=== PATIENT | female | born 1995 | race Caucasian/White ===

== ENCOUNTER 2016-11-03 04:59 | Emergency (ER) | payer OTHER ==
[2016-11-03 05:53] LABS: Appearance,Urine Cloudy (Clear); Bacteria,Urine Rare /hpf; Bilirubin,Urine Negative (Negative); Glucose,Urine (UA) Negative (Negative); Ketones,Urine Negative (Negative); Leukocyte Esterase,Urine Moderate (Negative); Mucus,Urine Occasional /hpf; Nitrite,Urine Negative (Negative); Particle Count 6732; Protein,Urine Trace (Negative); RBC,Urine 2 /hpf (0-5); Specific Gravity,Urine 1.026 (1.001-1.035); Squamous Epithelial Cell,Urine 12 /hpf (0-4); UA Billing (MACRO vs. MICRO) MICRO; Urobilinogen,Urine <2.0 mg/dL (<2.0); WBC,Urine 17 /hpf (0-5)
[2016-11-03] MEDS ORDERED: ONDANSETRON ODT 8 MG TAB.RAPDIS PO STA (06:30)
--- NOTE | 2016-11-03 06:32 | ED ---
General Adult HPI - General Chief complaint: Nausea/Vomiting/Diarrhea Stated complaint: NVD Time Seen by Provider: 11/03/16 06:19 Source: patient, RN notes reviewed, old records reviewed Mode of arrival: ambulatory Limitations: no limitations - History of Present Illness Initial comments: This is a 22-year-old female here for evaluation nausea vomiting diarrhea, abdominal pain. Mild dysuria as well. Patient has no modifying factors or symptoms at home, no blood in her vomit, no blood in her diarrhea and no fevers. No travel history no sick contacts with similar complaints, no recent changes to diet. patient has had these symptoms along with the burning with urination for about a day and a half - Related Data Home Medications Medication Instructions Recorded Confirmed traMADol HCL [Ultram] 11/03/16 Previous Rx's Medication Instructions Recorded Naproxen [Naprosyn] 500 mg PO Q12HR #60 tab 11/03/16 Nitrofurantoin Monohyd/M-Cryst 100 mg PO Q12HR #10 cap 11/03/16 [Macrobid] Ondansetron Odt [Zofran Odt] 4 mg PO Q8HR PRN #30 tab 11/03/16 Allergies Allergy/AdvReac Type Severity Reaction Status Date / Time Penicillins Allergy Itching Verified 11/03/16 05:06 Review of Systems ROS Statement: Those systems with pertinent positive or pertinent negative responses have been documented in the HPI. ROS Other: All systems not noted in ROS Statement are negative. Past Medical History Past Medical History: Asthma, GERD/Reflux History of Any Multi-Drug Resistant Organisms: None Reported Past Surgical History: No Surgical Hx Reported Past Psychological History: Depression Smoking Status: Current every day smoker Past Alcohol Use History: None Reported Past Drug Use History: None Reported General Exam Limitations: no limitations General appearance: alert, in no apparent distress Head exam: Present: atraumatic, normocephalic, normal inspection Eye exam: Present: normal appearance, PERRL, EOMI. Absent: scleral icterus, conjunctival injection, periorbital swelling ENT exam: Present: normal exam, mucous membranes moist Neck exam: Present: normal inspection. Absent: tenderness, meningismus, lymphadenopathy Respiratory exam: Present: normal lung sounds bilaterally. Absent: respiratory distress, wheezes, rales, rhonchi, stridor Cardiovascular Exam: Present: regular rate, normal rhythm, normal heart sounds. Absent: systolic murmur, diastolic murmur, rubs, gallop, clicks GI/Abdominal exam: Present: soft, normal bowel sounds. Absent: distended, tenderness, guarding, rebound, rigid Extremities exam: Present: normal inspection, full ROM, normal capillary refill. Absent: tenderness, pedal edema, joint swelling, calf tenderness Back exam: Present: normal inspection Neurological exam: Present: alert, oriented X3, CN II-XII intact Psychiatric exam: Present: normal affect, normal mood Skin exam: Present: warm, dry, intact, normal color. Absent: rash Course Vital Signs 11/03/16 11/03/16 05:04 06:47 Temperature 97.9 F 100.3 F H Pulse Rate 130 H 110 H Respiratory 20 16 Rate Blood Pressure 128/75 119/58 O2 Sat by Pulse 98 96 Oximetry Medical Decision Making - Medical Decision Making 21 female here with nausea vomiting diarrhea, nausea is resolved with antiemetics, positive urine for urinary tract infection, patient will be treated appropriately. - Lab Data Lab Results 11/03/16 11/03/16 Range/Units 05:25 05:25 Urine Color Yellow Urine Appearance Cloudy H (Clear) Urine pH 6.0 (5.0-8.0) Ur Specific [place] 1.026 (1.001-1.035) Urine Protein Trace H (Negative) Urine Glucose (UA) Negative (Negative) Urine Ketones Negative (Negative) Urine Blood Negative (Negative) Urine Nitrate Negative (Negative) Urine Bilirubin Negative (Negative) Urine Urobilinogen <2.0 (<2.0) mg/dL Ur Leukocyte Esterase Moderate H (Negative) Urine RBC 2 (0-5) /hpf Urine WBC 17 H (0-5) /hpf Ur Squamous Epith Cells 12 H (0-4) /hpf Urine Bacteria Rare H (None) /hpf Hyaline Casts 2 (0-2) /lpf Urine Mucus Occasional H (None) /hpf Urine HCG, Qual Not Detected (Not Detectd) Disposition Clinical Impression: Dehydration, Nausea & vomiting, UTI (urinary tract infection) Disposition: HOME SELF-CARE Condition: Good Instructions: Acute Nausea and Vomiting (ED), Urinary Tract Infection in Women (ED) Prescriptions: Naproxen [Naprosyn] 500 mg PO Q12HR #60 tab Nitrofurantoin Monohyd/M-Cryst [Macrobid] 100 mg PO Q12HR #10 cap Ondansetron Odt [Zofran Odt] 4 mg PO Q8HR PRN #30 tab PRN Reason: Nausea Referrals: Elisa Curtis MD [Primary Care Provider] - 1-2 days
[2016-11-03] MEDS ORDERED: ACETAMINOPHEN TAB 325 MG TAB PO STA (06:45)
[2016-11-03 06:48] VITALS: BP 119/58; PULSE 110; RESP 16; TEMP 100.3
== END 2016-11-03 06:49 | disposition home or self-care (01) ==
LOC: EC 04:59
DX: N39.0 Urinary tract infection, site not specified (principal); E86.0 Dehydration; F17.200 Nicotine dependence, unspecified, uncomplicated; Z88.0 Allergy status to penicillin; Z79.891 Long term (current) use of opiate analgesic
CPT/HCPCS: 81001; 81025; 99284

== ENCOUNTER 2017-09-07 12:24 | Emergency (ER) | payer OTHER ==
[2017-09-07 12:43] VITALS: BP 133/80; PULSE 87; RESP 18; TEMP 97.9
--- NOTE | 2017-09-07 13:06 | ED ---
URI HPI - General Chief Complaint: Upper Respiratory Infection Stated Complaint: Poss Sinus Infection Time Seen by Provider: 09/07/17 12:45 Source: patient, RN/MD, RN notes reviewed, old records reviewed Mode of arrival: ambulatory Limitations: no limitations - History of Present Illness Initial Comments: Patient is a 21-year-old female presents emergency Department chief complaint of sinus congestion, sore throat, and eye swelling and pressure for the past 4 days. Patient reports that she's been taking Mucinex with some minor relief. She denies any known fever or chills. She reports that she is up-to-date on all for vaccinations, denies any specific productive cough, chest pain or shortness of breath. Patient has had no nausea or vomiting.Patient denies any recent fever, chills, shortness of breath, chest pain, back pain, abdominal pain , nausea vomiting, numbness or tingling, dysuria or hematuria, constipation or diarrhea, headaches or visual changes, or any other current symptoms - Related Data Home Medications Medication Instructions Recorded Confirmed traMADol HCL [Ultram] 11/03/16 Previous Rx's Medication Instructions Recorded Naproxen [Naprosyn] 500 mg PO Q12HR #60 tab 11/03/16 Nitrofurantoin Monohyd/M-Cryst 100 mg PO Q12HR #10 cap 11/03/16 [Macrobid] Ondansetron Odt [Zofran Odt] 4 mg PO Q8HR PRN #30 tab 11/03/16 Azithromycin [Zithromax Z-pack] 250 mg PO DIRECTED #6 tab 09/07/17 Fluticasone Nasal [place] [Flonase 1 spray EA NOSTRIL DAILY #1 bottle 09/07/17 Nasal [place]] Allergies Allergy/AdvReac Type Severity Reaction Status Date / Time Penicillins Allergy Itching Verified 09/07/17 12:43 Review of Systems ROS Statement: Those systems with pertinent positive or pertinent negative responses have been documented in the HPI. ROS Other: All systems not noted in ROS Statement are negative. Past Medical History Past Medical History: Asthma, GERD/Reflux History of Any Multi-Drug Resistant Organisms: None Reported Past Surgical History: No Surgical Hx Reported Past Psychological History: Depression Smoking Status: Current every day smoker Past Alcohol Use History: Occasional Past Drug Use History: None Reported General Exam - General Exam Comments Initial Comments: 21-year-old female. No acute distress. Limitations: no limitations General appearance: alert, in no apparent distress Head exam: Present: atraumatic Eye exam: Present: normal appearance, PERRL, EOMI. Absent: scleral icterus, conjunctival injection, periorbital swelling ENT exam: Present: normal exam, mucous membranes moist, other (Patient is tender over that maxillary sinuses.). Absent: normal oropharynx (Patient has enlarged tonsils,), TM's normal bilaterally (Patient has fluid behind both TMs.) Neck exam: Present: normal inspection. Absent: tenderness, meningismus, lymphadenopathy Respiratory exam: Present: normal lung sounds bilaterally. Absent: respiratory distress, wheezes, rales, rhonchi, stridor Cardiovascular Exam: Present: regular rate, normal rhythm, normal heart sounds. Absent: systolic murmur, diastolic murmur, rubs, gallop, clicks GI/Abdominal exam: Present: soft, normal bowel sounds. Absent: distended, tenderness, guarding, rebound, rigid Extremities exam: Present: normal inspection, full ROM, normal capillary refill. Absent: tenderness, pedal edema, joint swelling, calf tenderness Back exam: Present: normal inspection Neurological exam: Present: alert, oriented X3, CN II-XII intact Psychiatric exam: Present: normal affect, normal mood Skin exam: Present: warm, dry, intact, normal color. Absent: rash Course Vital Signs 09/07/17 12:39 Temperature 97.9 F Pulse Rate 87 Respiratory 18 Rate Blood Pressure 133/80 O2 Sat by Pulse 96 Oximetry Medical Decision Making - Medical Decision Making 21-year-old female presents emergency Department chief complaint of sinus congestion for approximately 4-5 days. Patient does have some swollen tonsils, no significant erythema noted. Patient is ALLERGIC to penicillins. Patient does have some erythematous nasal turbinates sales well. Discussed the importance of taking Mucinex, this time our the patient for a intranasal corticosteroid, as well as azithromycin for sinusitis.. Discussed that she needs to follow-up with her primary care provider. Patient agrees to treatment plan will comply. Return parameters were discussed. Disposition Clinical Impression: Sinusitis Disposition: HOME SELF-CARE Condition: Good Instructions: Upper Respiratory Infection (ED) Additional Instructions: and advised to follow-up with primary care provider. Continue to take Mucinex and other nasal decongestants. Return to emergency department if any alarming signs or symptoms occur. Prescriptions: Azithromycin [Zithromax Z-pack] 250 mg PO DIRECTED #6 tab Fluticasone Nasal [place] [Flonase Nasal [place]] 1 spray EA NOSTRIL DAILY #1 bottle Referrals: Elisa Curtis MD [Primary Care Provider] - 1-2 days Time of Disposition: 13:05
== END 2017-09-07 13:17 | disposition home or self-care (01) ==
LOC: EC 12:24
DX: J32.0 Chronic maxillary sinusitis (principal); F17.200 Nicotine dependence, unspecified, uncomplicated; Z88.0 Allergy status to penicillin; Z79.891 Long term (current) use of opiate analgesic
CPT/HCPCS: 99283

== ENCOUNTER 2017-12-13 11:25 | Emergency (ER) | payer OTHER ==
[2017-12-13] MEDS ORDERED: SODIUM CHLORIDE 0.9% 1,000 ML IV STA (11:40)
[2017-12-13] MEDS ORDERED: ONDANSETRON 4 MG/2 ML VIAL IVP STA (11:40)
--- NOTE | 2017-12-13 11:43 | ED ---
General Adult HPI - General Chief complaint: Nausea/Vomiting/Diarrhea Stated complaint: Vomiting/throat swollen Time Seen by Provider: 12/13/17 11:30 Source: patient, RN notes reviewed Mode of arrival: ambulatory Limitations: no limitations - History of Present Illness Initial comments: Patient 22-year-old female who presents emergency room today with a chief complaint of symptoms of nausea vomiting times one day. Patient does not that she woke up yesterday morning feeling nauseated. States she didn't have several bouts of vomiting with some dry heaving. She does admit that she's tried to drink is having a difficult time keeping down fluids. Patient denies any abdominal pain. She has noted some swollen lymph nodes. Admits to a history of strep throat. Denies temperature symptoms. Patient denies any recent fever, chills, shortness of breath, chest pain, back pain, numbness or tingling, dysuria or hematuria, constipation or diarrhea, headaches or visual changes, or any other complaints. - Related Data Previous Rx's Medication Instructions Recorded Azithromycin [Zithromax Z-pack] 0 mg PO DIRECTED #6 tab 12/13/17 Ondansetron Odt [Zofran ODT] 4 mg PO Q8HR PRN #20 tab 12/13/17 Allergies Allergy/AdvReac Type Severity Reaction Status Date / Time Penicillins Allergy Itching Verified 12/13/17 11:47 Review of Systems ROS Statement: Those systems with pertinent positive or pertinent negative responses have been documented in the HPI. ROS Other: All systems not noted in ROS Statement are negative. Past Medical History Past Medical History: Asthma, GERD/Reflux History of Any Multi-Drug Resistant Organisms: None Reported Past Surgical History: No Surgical Hx Reported Past Psychological History: Depression Smoking Status: Current every day smoker Past Alcohol Use History: Occasional Past Drug Use History: None Reported General Exam - General Exam Comments Initial Comments: General: The patient is awake and alert, in no distress, and does not appear acutely ill. Eye: Pupils are equal, round and reactive to light, extra-ocular movements are intact. No nystagmus. There is normal conjunctiva bilaterally. No signs of icterus. Ears, nose, mouth and throat: There are moist mucous membranes and no oral lesions. Neck: The neck is supple, there is no tenderness or JVD. Cardiovascular: There is a regular rate and rhythm. No murmur, rub or gallop is appreciated. Respiratory: Lungs are clear to auscultation, respirations are non-labored, breath sounds are equal. No wheezes, stridor, rales, or rhonchi. Gastrointestinal: Soft, non-distended, non-tender abdomen without masses or organomegaly noted. There is no rebound or guarding present. No CVA tenderness. Musculoskeletal: Normal ROM, no tenderness. Strength 5/5. Sensation intact. Pulses equal bilaterally 2+. Neurological: A&O x 3. CN II-XII intact, There are no obvious motor or sensory deficits. Coordination appears grossly intact. Speech is normal. Skin: Skin is warm and dry and no rashes or lesions are noted. Psychiatric: Cooperative, appropriate mood & affect, normal judgment. Limitations: no limitations Course Vital Signs 12/13/17 12/13/17 11:27 13:21 Temperature 98.5 F 100.6 F H Pulse Rate 114 H 103 H Respiratory 20 16 Rate Blood Pressure 114/70 124/64 O2 Sat by Pulse 99 98 Oximetry Medical Decision Making - Medical Decision Making Patient reexamined at this time shows no signs of distress she is feeling better here in emergency room. Nausea and vomiting much improved. Patient's strep test is positive. Heterophile negative. Patient does have low-grade fever here in emergency room. Given ibuprofen. Feeling well at this time will be started on azithromycin due to ALLERGY to penicillins or strep throat. Also given nausea medication go home with. Advised follow-up the family doctor return if symptoms increase or worsen or for new concerns. - Lab Data Result diagrams: 12/13/17 12:20 12/13/17 12:20 Lab Results 12/13/17 12/13/17 12/13/17 Range/Units 12:20 12:20 12:20 WBC 12.7 H (3.8-10.6) k/uL RBC 4.69 (3.80-5.40) m/uL Hgb 13.7 (11.4-16.0) gm/dL Hct 40.5 (34.0-46.0) % MCV 86.5 (80.0-100.0) fL MCH 29.1 (25.0-35.0) pg MCHC 33.7 (31.0-37.0) g/dL RDW 12.3 (11.5-15.5) % Plt Count 210 (150-450) k/uL Neutrophils % 82 % Lymphocytes % 10 % Monocytes % 7 % Eosinophils % 1 % Basophils % 0 % Neutrophils # 10.5 H (1.3-7.7) k/uL Lymphocytes # 1.3 (1.0-4.8) k/uL Monocytes # 0.9 (0-1.0) k/uL Eosinophils # 0.1 (0-0.7) k/uL Basophils # 0.0 (0-0.2) k/uL Sodium 137 (137-145) mmol/L Potassium 3.8 (3.5-5.1) mmol/L Chloride 104 (98-107) mmol/L Carbon Dioxide 22 (22-30) mmol/L Anion Gap 11 mmol/L BUN 12 (7-17) mg/dL Creatinine 0.56 (0.52-1.04) mg/dL Est GFR (CKD-EPI)AfAm >90 (>60 ml/min/1.73 sqM) Est GFR (CKD-EPI)NonAf >90 (>60 ml/min/1.73 sqM) Glucose 93 (74-99) mg/dL Calcium 9.1 (8.4-10.2) mg/dL Total Bilirubin 0.6 (0.2-1.3) mg/dL AST 21 (14-36) U/L ALT 28 (9-52) U/L Alkaline Phosphatase 90 (38-126) U/L Total Protein 6.8 (6.3-8.2) g/dL Albumin 3.7 (3.5-5.0) g/dL Urine Color Yellow Urine Appearance Cloudy H (Clear) Urine pH 6.0 (5.0-8.0) Ur Specific [place] 1.027 (1.001-1.035) Urine Protein 1+ H (Negative) Urine Glucose (UA) Negative (Negative) Urine Ketones 1+ H (Negative) Urine Blood Negative (Negative) Urine Nitrite Negative (Negative) Urine Bilirubin Negative (Negative) Urine Urobilinogen <2.0 (<2.0) mg/dL Ur Leukocyte Esterase Small H (Negative) Urine WBC 9 H (0-5) /hpf Ur Squamous Epith Cells 16 H (0-4) /hpf Urine Mucus Moderate H (None) /hpf Urine HCG, Qual (Not Detectd) Heterophile Antibody (Negative) Group A Strep Rapid (Negative) 12/13/17 12/13/17 12/13/17 Range/Units 12:20 12:20 12:20 WBC (3.8-10.6) k/uL RBC (3.80-5.40) m/uL Hgb (11.4-16.0) gm/dL Hct (34.0-46.0) % MCV (80.0-100.0) fL MCH (25.0-35.0) pg MCHC (31.0-37.0) g/dL RDW (11.5-15.5) % Plt Count (150-450) k/uL Neutrophils % % Lymphocytes % % Monocytes % % Eosinophils % % Basophils % % Neutrophils # (1.3-7.7) k/uL Lymphocytes # (1.0-4.8) k/uL Monocytes # (0-1.0) k/uL Eosinophils # (0-0.7) k/uL Basophils # (0-0.2) k/uL Sodium (137-145) mmol/L Potassium (3.5-5.1) mmol/L Chloride (98-107) mmol/L Carbon Dioxide (22-30) mmol/L Anion Gap mmol/L BUN (7-17) mg/dL Creatinine (0.52-1.04) mg/dL Est GFR (CKD-EPI)AfAm (>60 ml/min/1.73 sqM) Est GFR (CKD-EPI)NonAf (>60 ml/min/1.73 sqM) Glucose (74-99) mg/dL Calcium (8.4-10.2) mg/dL Total Bilirubin (0.2-1.3) mg/dL AST (14-36) U/L ALT (9-52) U/L Alkaline Phosphatase (38-126) U/L Total Protein (6.3-8.2) g/dL Albumin (3.5-5.0) g/dL Urine Color Urine Appearance (Clear) Urine pH (5.0-8.0) Ur Specific [place] (1.001-1.035) Urine Protein (Negative) Urine Glucose (UA) (Negative) Urine Ketones (Negative) Urine Blood (Negative) Urine Nitrite (Negative) Urine Bilirubin (Negative) Urine Urobilinogen (<2.0) mg/dL Ur Leukocyte Esterase (Negative) Urine WBC (0-5) /hpf Ur Squamous Epith Cells (0-4) /hpf Urine Mucus (None) /hpf Urine HCG, Qual Not Detected (Not Detectd) Heterophile Antibody Negative (Negative) Group A Strep Rapid Positive A (Negative) Disposition Clinical Impression: Strep throat, Nausea & vomiting Disposition: HOME SELF-CARE Condition: Good Instructions: Strep Throat (ED) Additional Instructions: Please use medication as discussed. Please follow-up with family doctor in the next 2 days of symptoms have not improved. Please return to emergency room if the symptoms increase or worsen or for any other concerns. Prescriptions: Azithromycin [Zithromax Z-pack] 0 mg PO DIRECTED #6 tab Ondansetron Odt [Zofran ODT] 4 mg PO Q8HR PRN #20 tab PRN Reason: Nausea Referrals: Elisa Curtis MD [Primary Care Provider] - 1-2 days Time of Disposition: 14:00
[2017-12-13 12:55] LABS: ALT 28 U/L (9-52); AST 21 U/L (14-36); Albumin 3.7 g/dL (3.5-5.0); Alkaline Phosphatase 90 U/L (38-126); Anion Gap 11 mmol/L; Blood Urea Nitrogen 12 mg/dL (7-17); Calcium 9.1 mg/dL (8.4-10.2); Carbon Dioxide 22 mmol/L (22-30); Chloride 104 mmol/L (98-107); Glucose 93 mg/dL (74-99); Potassium 3.8 mmol/L (3.5-5.1); Sodium 137 mmol/L (137-145); Total Bilirubin 0.6 mg/dL (0.2-1.3); Total Protein 6.8 g/dL (6.3-8.2)
[2017-12-13 12:56] LABS: Appearance,Urine Cloudy (Clear); Bilirubin,Urine Negative (Negative); Blood,Urine Negative (Negative); Color,Urine Yellow; Glucose,Urine (UA) Negative (Negative); Ketones,Urine 1+ (Negative); Leukocyte Esterase,Urine Small (Negative); Mucus,Urine Moderate /hpf; Protein,Urine 1+ (Negative); Specific Gravity,Urine 1.027 (1.001-1.035); Squamous Epithelial Cell,Urine 16 /hpf (0-4); Urobilinogen,Urine <2.0 mg/dL (<2.0); WBC,Urine 9 /hpf (0-5)
[2017-12-13 12:57] LABS: Basophils % (A) 0 %; Eosinophils # (A) 0.1 k/uL (0-0.7); Eosinophils % (A) 1 %; HCT 40.5 % (34.0-46.0); HGB 13.7 gm/dL (11.4-16.0); Lymphocytes # (A) 1.3 k/uL (1.0-4.8); Lymphocytes % (A) 10 %; MCH 29.1 pg (25.0-35.0); MCHC 33.7 g/dL (31.0-37.0); MCV 86.5 fL (80.0-100.0); Mean Platelet Volume 8.8; Monocytes # (A) 0.9 k/uL (0-1.0); Monocytes % (A) 7 %; Neutrophils # (A) 10.5 k/uL (1.3-7.7); Neutrophils % (A) 82 %; Platelet Count 210 k/uL (150-450); RBC 4.69 m/uL (3.80-5.40); RDW 12.3 % (11.5-15.5); WBC 12.7 k/uL (3.8-10.6)
[2017-12-13 13:24] VITALS: BP 124/64; PULSE 103; RESP 16; TEMP 100.6
[2017-12-13] MEDS ORDERED: IBUPROFEN 600 MG STARTER PACK 4 TAB BTL PO STA (13:56)
== END 2017-12-13 14:22 | disposition home or self-care (01) ==
LOC: EC 11:25
DX: J02.0 Streptococcal pharyngitis (principal); F17.200 Nicotine dependence, unspecified, uncomplicated; Z88.0 Allergy status to penicillin
CPT/HCPCS: 36415; 80053; 85025; 86308; 81001; 81025; 87086; 87430; 99284; 96374; 96361 ×2; J2405

== ENCOUNTER 2018-10-21 22:50 | Emergency (ER) | payer OTHER ==
[2018-10-21 23:31] VITALS: TEMP 98.7
--- NOTE | 2018-10-22 00:03 | XR ---
EXAMINATION TYPE: XR ankle complete LT DATE OF EXAM: 10/21/2018 COMPARISON: NONE HISTORY: Ankle pain TECHNIQUE: 3 views FINDINGS: Ankle mortise is anatomic. I see no fracture. There is soft tissue swelling over the latera l malleolus. IMPRESSION: Soft tissue swelling. No fracture seen.
--- NOTE | 2018-10-22 00:04 | XR ---
EXAMINATION TYPE: XR foot complete LT DATE OF EXAM: 10/21/2018 COMPARISON: NONE HISTORY: Foot pain TECHNIQUE: 3 views FINDINGS: Metatarsals appear intact. I see no fracture nor dislocation. There are no erosions. Joint spaces are normal. IMPRESSION: Negative left foot exam.
[2018-10-22] MEDS ORDERED: IBUPROFEN 600 MG STARTER PACK 4 TAB BTL PO STA (01:08)
--- NOTE | 2018-10-22 01:10 | ED ---
Lower Extremity Injury HPI - General Chief Complaint: Extremity Injury, Lower Stated Complaint: Foot injury Time Seen by Provider: 10/22/18 00:56 Source: patient Mode of arrival: ambulatory Limitations: no limitations - History of Present Illness Initial Comments: 23-year-old female patient presents to the emergency department today for evaluation of left ankle pain and swelling. Patient states that an hour prior to arrival she was walking outside when she stepped off a curb and rolled her ankle. Patient states that she had onset of pain and swelling shortly after. Denies taking anything for pain or discomfort. Denies any numbness or tingling to the foot. States she is able to ablate however it is quite painful for her. She denies falling with the injury. At that she has had a fracture to this ankle in the past. She denies any other injuries. Patient denies any headache, neck pain, back pain, chest pain, shortness of breath, dizziness, weakness, abdominal pain, nausea, vomiting, or difficulties with bowel movements or urination. - Related Data Previous Rx's Medication Instructions Recorded Azithromycin [Zithromax Z-pack] 0 mg PO DIRECTED #6 tab 12/13/17 Ondansetron Odt [Zofran ODT] 4 mg PO Q8HR PRN #20 tab 12/13/17 Ibuprofen [Motrin] 600 mg PO Q8HR PRN #30 tab 10/22/18 Allergies Allergy/AdvReac Type Severity Reaction Status Date / Time Penicillins Allergy Itching Verified 10/21/18 23:31 Review of Systems ROS Statement: Those systems with pertinent positive or pertinent negative responses have been documented in the HPI. ROS Other: All systems not noted in ROS Statement are negative. Past Medical History Past Medical History: Asthma, GERD/Reflux History of Any Multi-Drug Resistant Organisms: None Reported Past Surgical History: No Surgical Hx Reported Past Psychological History: Depression Smoking Status: Former smoker Past Alcohol Use History: Occasional Past Drug Use History: None Reported General Exam Limitations: no limitations General appearance: alert, in no apparent distress, other (This is a well- developed, well-nourished adult female patient in no acute distress. Vital signs upon presentation are temperature 98.7F, pulse 116, respirations 17, blood pressure 126/88, pulse ox 98% on room air.) Eye exam: Present: normal appearance, PERRL, EOMI. Absent: scleral icterus, conjunctival injection, periorbital swelling ENT exam: Present: normal exam, normal oropharynx, mucous membranes moist Respiratory exam: Present: normal lung sounds bilaterally. Absent: respiratory distress, wheezes, rales, rhonchi, stridor Cardiovascular Exam: Present: regular rate, normal rhythm, normal heart sounds. Absent: systolic murmur, diastolic murmur, rubs, gallop, clicks Extremities exam: Present: full ROM, tenderness (Is over the left lateral malleolus), normal capillary refill, other (Patient has significant soft tissue swelling surrounding the left lateral malleolus. Skin is pink, warm, dry. Cap refills less than 3 seconds. Pedal and posttibial pulses are 2+ and equal bilaterally.). Absent: normal inspection, pedal edema, joint swelling, calf tenderness Neurological exam: Present: alert, oriented X3, CN II-XII intact Psychiatric exam: Present: normal affect, normal mood Skin exam: Present: warm, dry, intact, normal color. Absent: rash Course Vital Signs 10/21/18 10/22/18 23:28 01:22 Temperature 98.7 F Pulse Rate 116 H 110 H Respiratory 17 16 Rate Blood Pressure 126/88 130/82 O2 Sat by Pulse 98 95 Oximetry Medical Decision Making - Medical Decision Making 23-year-old female patient presents the emergency department today for evaluation of left ankle injury. Physical examination did reveal swelling surrounding the left lateral malleolus. Neurovascular status is intact. X- rays of the left foot and ankle were obtained and were negative for any evidence of fracture. Patient symptoms are consistent with sprain. She was put in a ankle stirrup splint. She is instructed regarding rest, ice, elevation. She'll be given prescription for ibuprofen for pain control. She is instructed to follow-up with her primary care physician for recheck in 1-2 days. She is instructed to have repeat x-rays performed in 7-10 days if pain symptoms persist. Return parameters were discussed in detail. She verbalizes understanding and agrees with this plan. - Radiology Data Radiology results: report reviewed, image reviewed 3 views of the left ankle are obtained. Report is reviewed in its entirety. Impression by Dr. Faust shows soft tissue swelling with no fracture. 3 views of the left foot are obtained. Report was reviewed in its entirety. Impression by Dr. Faust shows negative left foot exam. Disposition Clinical Impression: Left ankle sprain Disposition: HOME SELF-CARE Condition: Good Instructions: Ankle Sprain (ED) Additional Instructions: Rest, ice, elevate the left ankle. Use ankle splint for comfort and support. Follow-up with your primary care physician for recheck and repeat x-rays pain symptoms persist beyond 7-10 days. Return to the emergency department immediately for any new, worsening, or concerning symptoms Prescriptions: Ibuprofen [Motrin] 600 mg PO Q8HR PRN #30 tab PRN Reason: Pain Is patient prescribed a controlled substance at d/c from ED?: No Referrals: Elisa Curtis MD [Primary Care Provider] - 1-2 days Time of Disposition: 01:09
[2018-10-22 01:23] VITALS: BP 130/82; PULSE 110; RESP 16
== END 2018-10-22 01:22 | disposition home or self-care (01) ==
LOC: SUPCPDRO 22:50 → EC 22:50
DX: S93.402A Sprain of unspecified ligament of left ankle, initial encounter (principal); Z87.81 Personal history of (healed) traumatic fracture; Z87.891 Personal history of nicotine dependence; Z88.0 Allergy status to penicillin; X50.1XXA Overexertion from prolonged static or awkward postures, initial encounter; Y92.480 Sidewalk as the place of occurrence of the external cause; Y93.01 Activity, walking, marching and hiking
CPT/HCPCS: 73610; 73630; 99283; 29515; L4350

== ENCOUNTER 2019-11-12 20:12 | Emergency (ER) | payer OTHER ==
[2019-11-12 20:21] VITALS: RESP 18; TEMP 98.6
[2019-11-12] MEDS ORDERED: diphenhydrAMINE 50 MG/ML 1 ML VIAL IVP STA (20:36)
[2019-11-12] MEDS ORDERED: methylPREDNISolone SOD SUCCI 125 MG/2 ML VIAL IV STA (20:36)
[2019-11-12] MEDS ORDERED: SODIUM CHLORIDE 0.9% 500 ML 500 ML IV STA (20:36)
[2019-11-12] MEDS ORDERED: FAMOTIDINE 20 MG/2 ML VIAL IV STA (20:36)
--- NOTE | 2019-11-12 21:29 | ED ---
General Adult HPI - General Chief complaint: Allergic Reaction Stated complaint: Face Swelling Time Seen by Provider: 11/12/19 20:24 Source: patient, RN notes reviewed, old records reviewed Mode of arrival: ambulatory Limitations: no limitations - History of Present Illness Initial comments: 24-year-old female patient with ED for evaluation of possible ALLERGIC reaction. Patient reports that beginning last night she began to experience some facial swelling around her eyes. Patient reports that progressive throughout the day has been worse reports that she is having some facial swelling. Denies any shortness breath or difficulty breathing. Denies any rash. Denies any new contacts. Denies any other complaints. Denies any chance of being . Systemic: Pt denies fatigue, fever/chills, rash. Pt denies weakness, night sweats, weight loss. Neuro: Pt denies headache, visual disturbances, syncope or pre-syncope. HEENT: Pt denies ocular discharge or irritation, otalgia, rhinorrhea, pharyngitis or notable lymphadenopathy. Cardiopulmonary: Pt denies chest pain, SOB, heart palpitations, dyspnea on exertion. Abdominal/GI: Pt denies abdominal pain, n/v/d. : Pt denies dysuria, burning w/ urination, frequency/urgency. Denies new onset urinary or bowel incontinence. MSK: Pt denies myalgia, loss of strength or function in extremities. Neuro: Pt denies new onset weakness, paresthesias. - Related Data Previous Rx's Medication Instructions Recorded Azithromycin [Zithromax Z-pack] 0 mg PO DIRECTED #6 tab 12/13/17 Ondansetron Odt [Zofran ODT] 4 mg PO Q8HR PRN #20 tab 12/13/17 Ibuprofen [Motrin] 600 mg PO Q8HR PRN #30 tab 10/22/18 EPINEPHrine (Auto Inject) [Epipen] 0.3 mg IM ONCE PRN #2 pen 11/12/19 Famotidine [Pepcid] 20 mg PO BID 4 Days #8 tablet 11/12/19 predniSONE 50 mg PO DAILY 4 Days #4 tab 11/12/19 Allergies Allergy/AdvReac Type Severity Reaction Status Date / Time Penicillins Allergy Itching Verified 10/21/18 23:31 latex Allergy Rash/Hives Uncoded 11/12/19 20:22 Review of Systems ROS Statement: Those systems with pertinent positive or pertinent negative responses have been documented in the HPI. ROS Other: All systems not noted in ROS Statement are negative. Past Medical History Past Medical History: Asthma, GERD/Reflux History of Any Multi-Drug Resistant Organisms: None Reported Past Surgical History: No Surgical Hx Reported Past Psychological History: Depression Smoking Status: Former smoker Past Alcohol Use History: Occasional Past Drug Use History: None Reported General Exam - General Exam Comments Initial Comments: Constitutional: NAD, AOX3, Pt has pleasant affect. HEENT: NC/AT, trachea midline, neck supple, no lymphadenopathy. Posterior pharynx non erythematous, without exudates. External ears appear normal, without discharge. Mucous membranes moist. Eyes PERRLA, EOM intact. There is no scleral icterus. No pallor noted. Mild edema noted to face. No posterior pharyngeal edema. No tongue swelling. Cardiopulmonary: RRR, no murmurs, rubs or gallops, no JVD noted. Lungs CTAB in anterior and posterior thakkar. No peripheral edema. Abdominal exam: Abdomen soft and non-distended. Abdomen non-tender to palpation in all 4 quadrants. Bowel sounds active in LLQ. No hepatosplenomegaly. No ecchymosis Neuro: CN II-XII grossly intact. No nuchal rigidity. No raccon eyes, no jasso sign, no hemotympanum. No cervical spinal tenderness. MSK: No posterior calf tenderness bilaterally, homans sign negative bilaterally. Posterior tibialis and radial pulse +2 bilaterally. Sensation intact in upper and lower extremities. Full active ROM in upper and lower extremities, 5/5 stregnth. Derm: No rash Limitations: no limitations Course Vital Signs 11/12/19 11/12/19 20:16 22:06 Temperature 98.6 F 98.6 F Pulse Rate 116 H 96 Respiratory 18 18 Rate Blood Pressure 130/78 119/70 O2 Sat by Pulse 98 98 Oximetry Medical Decision Making - Medical Decision Making 24-year-old female patient with ED for evaluation of possible ALLERGIC reaction. Patient reports that beginning last night she began to experience some facial swelling around her eyes. Patient reports that progressive throughout the day has been worse reports that she is having some facial swelling. Denies any shortness breath or difficulty breathing. Denies any rash. Denies any new contacts. Denies any other complaints. Denies any chance of being . She fell signs stable, afebrile. Physical exam did display mild edema noted to the face. No rash. Pt initiated on Benadryl, steroids, Pepcid. There was mild improvement of swelling. Patient be discharged with steroids, Pepcid, EpiPen. We'll follow up with primary care provider, advised to discontinue use of all facial creams. Patient was unable to identify any new closure including medications which may have caused this. Will follow up with primary care provider and well Return to ER if condition worsens. Case discussed with Dr. Carrillo Disposition Clinical Impression: Allergic reaction Disposition: HOME SELF-CARE Condition: Stable Instructions (If sedation given, give patient instructions): General Allergic Reaction (ED) Additional Instructions: Take medications as directed. Follow-up with primary care provider tomorrow. Return to ER if condition worsens in any way. Only use epi pen for emergency anaphylaxis. Prescriptions: EPINEPHrine (Auto Inject) [Epipen] 0.3 mg IM ONCE PRN #2 pen PRN Reason: Anaphylaxis Famotidine [Pepcid] 20 mg PO BID 4 Days #8 tablet predniSONE 50 mg PO DAILY 4 Days #4 tab Is patient prescribed a controlled substance at d/c from ED?: No Referrals: Elisa Curtis MD [Primary Care Provider] - 1-2 days
[2019-11-12 22:07] VITALS: BP 119/70; PULSE 96
== END 2019-11-12 22:29 | disposition home or self-care (01) ==
LOC: EC 20:12
DX: T78.40XA Allergy, unspecified, initial encounter (principal); Z87.891 Personal history of nicotine dependence; Z88.0 Allergy status to penicillin; Z91.040 Latex allergy status
CPT/HCPCS: 99283; 96374; 96375 ×2; J1200; J2930

== ENCOUNTER 2020-03-13 07:05 | Emergency (ER) | payer OTHER ==
[2020-03-13 07:15] VITALS: TEMP 98
[2020-03-13] MEDS ORDERED: methylPREDNISolone SOD SUCCI 125 MG/2 ML VIAL IM STA (07:26)
[2020-03-13] MEDS ORDERED: FAMOTIDINE 20 MG TAB PO STA (07:26)
--- NOTE | 2020-03-13 07:38 | ED ---
General Adult HPI - General Chief complaint: Allergic Reaction Stated complaint: Allergic Reaction Time Seen by Provider: 03/13/20 07:12 Source: patient, RN notes reviewed Mode of arrival: ambulatory Limitations: no limitations - History of Present Illness Initial comments: 24-year-old female with a past medical history of asthma, GERD presents to the e mergency department for facial swelling. Patient states she is having swelling around both her eyes. Patient states this started yesterday. Patient states that she has had this happen before. She states that both times she was using a hair dye in the couple days leading up to this. Patient is a hairdresser and often uses hair dyes. Patient denies any swelling of the lips tongue or throat. Patient has no other complaints at this time including shortness of breath, chest pain, abdominal pain, nausea or vomiting, headache, or visual changes. - Related Data Previous Rx's Medication Instructions Recorded Azithromycin [Zithromax Z-pack] 0 mg PO DIRECTED #6 tab 12/13/17 Ondansetron Odt [Zofran ODT] 4 mg PO Q8HR PRN #20 tab 12/13/17 Ibuprofen [Motrin] 600 mg PO Q8HR PRN #30 tab 10/22/18 EPINEPHrine (Auto Inject) [Epipen] 0.3 mg IM ONCE PRN #2 pen 11/12/19 Famotidine [Pepcid] 20 mg PO BID 4 Days #8 tablet 11/12/19 predniSONE 50 mg PO DAILY 4 Days #4 tab 11/12/19 Famotidine [Pepcid] 20 mg PO BID #10 tablet 03/13/20 predniSONE 50 mg PO DAILY #4 tablet 03/13/20 Allergies Allergy/AdvReac Type Severity Reaction Status Date / Time Penicillins Allergy Itching Verified 03/13/20 07:15 latex Allergy Rash/Hives Uncoded 03/13/20 07:15 Review of Systems ROS Statement: Those systems with pertinent positive or pertinent negative responses have been documented in the HPI. ROS Other: All systems not noted in ROS Statement are negative. Past Medical History Past Medical History: Asthma, GERD/Reflux History of Any Multi-Drug Resistant Organisms: None Reported Past Surgical History: No Surgical Hx Reported Past Psychological History: Depression Smoking Status: Former smoker Past Alcohol Use History: Occasional Past Drug Use History: None Reported General Exam Limitations: no limitations General appearance: alert, in no apparent distress Head exam: Present: atraumatic, normocephalic, normal inspection Eye exam: Present: normal appearance, PERRL, EOMI, periorbital swelling (minimal superior periorbital edema). Absent: scleral icterus, conjunctival injection ENT exam: Present: normal exam, mucous membranes moist. Absent: normal oropharynx (no swelling of lips tongue or throat) Neck exam: Present: normal inspection, full ROM. Absent: tenderness, meningismu s, lymphadenopathy Respiratory exam: Present: normal lung sounds bilaterally. Absent: respiratory distress, wheezes, rales, rhonchi, stridor Cardiovascular Exam: Present: regular rate, normal rhythm, normal heart sounds. Absent: systolic murmur, diastolic murmur, rubs, gallop, clicks Neurological exam: Present: alert Course Vital Signs 03/13/20 07:12 Temperature 98 F Pulse Rate 105 H Respiratory 18 Rate Blood Pressure 154/106 O2 Sat by Pulse 97 Oximetry Medical Decision Making - Medical Decision Making 24-year-old female presents for facial edema. HPI and physical exam is documented. I do not see any swelling of the lips tongue or throat. I only see minimal edema of the superior eyelids. This has happened before patient received steroids, Pepcid, and Benadryl and had significant improvement. Patient will be given IM Solu-Medrol as well as Pepcid. She is driving home so will take Benadryl [id number]. She will return if she has any worsening symptoms such as swelling of the lips tongue or throat or any difficulty breathing. Disposition Clinical Impression: Allergic reaction Disposition: HOME SELF-CARE Condition: Good Instructions (If sedation given, give patient instructions): Angioedema (ED) Additional Instructions: Please take steroids starting tomorrow as directed. Take Pepcid as directed. Take Benadryl [id number] every 6 hours as needed[address] Do not drive or operate machinery while taking Benadryl. Return for any worsening symptoms including sling of the lips tongue or throat or any difficulty breathing. Prescriptions: Famotidine [Pepcid] 20 mg PO BID #10 tablet predniSONE 50 mg PO DAILY #4 tablet Is patient prescribed a controlled substance at d/c from ED?: No Referrals: Tita Connelly MD [REFERRING] - 1-2 days Time of Disposition: 07:34
[2020-03-13 07:39] VITALS: BP 147/85; PULSE 102; RESP 15
== END 2020-03-13 07:46 | disposition home or self-care (01) ==
LOC: EC 07:05
DX: T78.40XA Allergy, unspecified, initial encounter (principal); R60.0 Localized edema; Z87.891 Personal history of nicotine dependence; Z88.0 Allergy status to penicillin; Z91.040 Latex allergy status
CPT/HCPCS: 99283; 96372; J2930

== ENCOUNTER 2021-07-20 02:11 | Emergency (ER) | payer OTHER ==
[2021-07-20] MEDS ORDERED: SODIUM CHLORIDE 0.9% 500 ML 500 ML IV STA (02:38)
[2021-07-20] MEDS ORDERED: SODIUM CHLORIDE 0.9% 1,000 ML IV STA ×2 (02:38)
[2021-07-20] MEDS ORDERED: KETOROLAC 15 MG/ML 1 ML VIAL IVP STA (02:38)
--- NOTE | 2021-07-20 02:41 | ED ---
Female Urogenital HPI - General Chief complaint: Urogenital Stated complaint: Flank pain Time Seen by Provider: 07/20/21 02:14 Source: patient, RN notes reviewed, old records reviewed Mode of arrival: ambulatory Limitations: no limitations - History of Present Illness Initial comments: This is a 25-year-old female to the emergency department today. Patient Dese for evaluation regards to pain with urination dysuria and bilateral flank pain. Patient has multiple recent urinary tract infections, denying fevers but does not overall feeling well having nauseous with no vomiting patient's states family members told her she made a flutter felt feverish earlier today MD Complaint: dysuria, pelvic pain, other (Bilateral flank pain) -: days(s) Location: suprapubic Radiation: L flank, R flank Severity: moderate Severity scale (1-10): 5 Quality: cramping, dull Consistency: constant Improves with: none Worsens with: urination Patient : No Associated Symptoms: dysuria - Related Data Sexually active: Yes Previous Rx's Medication Instructions Recorded Azithromycin [Zithromax Z-pack (6 0 mg PO DIRECTED #6 tab 12/13/17 tabs)] Ondansetron Odt [Zofran ODT] 4 mg PO Q8HR PRN #20 tab 12/13/17 Ibuprofen [Motrin] 600 mg PO Q8HR PRN #30 tab 10/22/18 EPINEPHrine (Auto Inject) [Epipen] 0.3 mg IM ONCE PRN #2 pen 11/12/19 Famotidine [Pepcid] 20 mg PO BID 4 Days #8 tablet 11/12/19 predniSONE 50 mg PO DAILY 4 Days #4 tab 11/12/19 Famotidine [Pepcid] 20 mg PO BID #10 tablet 03/13/20 predniSONE 50 mg PO DAILY #4 tablet 03/13/20 Allergies Allergy/AdvReac Type Severity Reaction Status Date / Time Penicillins Allergy Itching Verified 07/20/21 02:29 latex Allergy Rash/Hives Uncoded 07/20/21 02:29 Review of Systems ROS Statement: Those systems with pertinent positive or pertinent negative responses have been documented in the HPI. ROS Other: All systems not noted in ROS Statement are negative. Past Medical History Past Medical History: Asthma, GERD/Reflux History of Any Multi-Drug Resistant Organisms: None Reported Past Surgical History: No Surgical Hx Reported Past Psychological History: Depression Smoking Status: Never smoker Past Alcohol Use History: Occasional Past Drug Use History: None Reported General Exam General appearance: alert, in no apparent distress Head exam: Present: atraumatic, normocephalic, normal inspection Eye exam: Present: normal appearance, PERRL, EOMI. Absent: scleral icterus, conjunctival injection, periorbital swelling ENT exam: Present: normal exam, mucous membranes moist Neck exam: Present: normal inspection. Absent: tenderness, meningismus, lymphadenopathy Respiratory exam: Present: normal lung sounds bilaterally. Absent: respiratory distress, wheezes, rales, rhonchi, stridor Cardiovascular Exam: Present: normal rhythm, irregular rhythm, normal heart sounds. Absent: systolic murmur, diastolic murmur, rubs, gallop, clicks GI/Abdominal exam: Present: soft, normal bowel sounds. Absent: distended, tenderness, guarding, rebound, rigid Extremities exam: Present: normal inspection, full ROM, normal capillary refill. Absent: tenderness, pedal edema, joint swelling, calf tenderness Back exam: Present: normal inspection Neurological exam: Present: alert, oriented X3, CN II-XII intact Psychiatric exam: Present: normal affect, normal mood Skin exam: Present: warm, dry, intact, normal color. Absent: rash Course Vital Signs 07/20/21 07/20/21 02:28 04:03 Temperature 98.7 F Pulse Rate 103 H 91 Respiratory 19 22 Rate Blood Pressure 135/99 122/64 O2 Sat by Pulse 98 98 Oximetry - Reevaluation(s) Reevaluation #1: 07/20/21 03:11 Medical record is reviewed Reevaluation #2: 07/20/21 04:39 Patient feeling improved here in the ER Reevaluation #3: 07/20/21 04:39 Patient informed results and questions answered Medical Decision Making - Medical Decision Making 25 female to the emergency department for evaluation positive urinary tract infection, urine will be cultured. At this time patient can be discharged home - Lab Data Result diagrams: 07/20/21 02:47 07/20/21 02:47 Lab Results 07/20/21 07/20/21 07/20/21 Range/Units 02:47 02:47 02:47 WBC 14.5 H (3.8-10.6) k/uL RBC 4.85 (3.80-5.40) m/uL Hgb 14.1 (11.4-16.0) gm/dL Hct 42.7 (34.0-46.0) % MCV 88.1 (80.0-100.0) fL MCH 29.2 (25.0-35.0) pg MCHC 33.1 (31.0-37.0) g/dL RDW 12.6 (11.5-15.5) % Plt Count 305 (150-450) k/uL MPV 7.7 Neutrophils % 74 % Lymphocytes % 19 % Monocytes % 4 % Eosinophils % 2 % Basophils % 0 % Neutrophils # 10.7 H (1.3-7.7) k/uL Lymphocytes # 2.8 (1.0-4.8) k/uL Monocytes # 0.6 (0-1.0) k/uL Eosinophils # 0.3 (0-0.7) k/uL Basophils # 0.0 (0-0.2) k/uL Sodium 138 (137-145) mmol/L Potassium 3.7 (3.5-5.1) mmol/L Chloride 104 (98-107) mmol/L Carbon Dioxide 24 (22-30) mmol/L Anion Gap 10 mmol/L BUN 14 (7-17) mg/dL Creatinine 0.67 (0.52-1.04) mg/dL Est GFR (CKD-EPI)AfAm >90 (>60 ml/min/1.73 sqM) Est GFR (CKD-EPI)NonAf >90 (>60 ml/min/1.73 sqM) Glucose 103 H (74-99) mg/dL Calcium 9.7 (8.4-10.2) mg/dL Total Bilirubin 0.5 (0.2-1.3) mg/dL AST 22 (14-36) U/L ALT 24 (4-34) U/L Alkaline Phosphatase 100 (38-126) U/L Total Protein 7.7 (6.3-8.2) g/dL Albumin 4.3 (3.5-5.0) g/dL Amylase 41 (30-110) U/L Lipase 44 (23-300) U/L Urine Color Yellow Urine Appearance Cloudy H (Clear) Urine pH 6.5 (5.0-8.0) Ur Specific [place] 1.016 (1.001-1.035) Urine Protein 1+ H (Negative) Urine Glucose (UA) Negative (Negative) Urine Ketones Negative (Negative) Urine Blood Moderate H (Negative) Urine Nitrite Negative (Negative) Urine Bilirubin Negative (Negative) Urine Urobilinogen <2.0 (<2.0) mg/dL Ur Leukocyte Esterase Large H (Negative) Urine RBC 119 H (0-5) /hpf Urine WBC 111 H (0-5) /hpf Ur Squamous Epith Cells 5 H (0-4) /hpf Amorphous Sediment Occasional H (None) /hpf Urine Bacteria Few H (None) /hpf Urine Mucus Moderate H (None) /hpf Urine HCG, Qual (Not Detectd) 07/20/21 Range/Units Unknown WBC (3.8-10.6) k/uL RBC (3.80-5.40) m/uL Hgb (11.4-16.0) gm/dL Hct (34.0-46.0) % MCV (80.0-100.0) fL MCH (25.0-35.0) pg MCHC (31.0-37.0) g/dL RDW (11.5-15.5) % Plt Count (150-450) k/uL MPV Neutrophils % % Lymphocytes % % Monocytes % % Eosinophils % % Basophils % % Neutrophils # (1.3-7.7) k/uL Lymphocytes # (1.0-4.8) k/uL Monocytes # (0-1.0) k/uL Eosinophils # (0-0.7) k/uL Basophils # (0-0.2) k/uL Sodium (137-145) mmol/L Potassium (3.5-5.1) mmol/L Chloride (98-107) mmol/L Carbon Dioxide (22-30) mmol/L Anion Gap mmol/L BUN (7-17) mg/dL Creatinine (0.52-1.04) mg/dL Est GFR (CKD-EPI)AfAm (>60 ml/min/1.73 sqM) Est GFR (CKD-EPI)NonAf (>60 ml/min/1.73 sqM) Glucose (74-99) mg/dL Calcium (8.4-10.2) mg/dL Total Bilirubin (0.2-1.3) mg/dL AST (14-36) U/L ALT (4-34) U/L Alkaline Phosphatase (38-126) U/L Total Protein (6.3-8.2) g/dL Albumin (3.5-5.0) g/dL Amylase (30-110) U/L Lipase (23-300) U/L Urine Color Urine Appearance (Clear) Urine pH (5.0-8.0) Ur Specific [place] (1.001-1.035) Urine Protein (Negative) Urine Glucose (UA) (Negative) Urine Ketones (Negative) Urine Blood (Negative) Urine Nitrite (Negative) Urine Bilirubin (Negative) Urine Urobilinogen (<2.0) mg/dL Ur Leukocyte Esterase (Negative) Urine RBC (0-5) /hpf Urine WBC (0-5) /hpf Ur Squamous Epith Cells (0-4) /hpf Amorphous Sediment (None) /hpf Urine Bacteria (None) /hpf Urine Mucus (None) /hpf Urine HCG, Qual Not Detected (Not Detectd) - Radiology Data Radiology results: report reviewed (CT abdomen and pelvis negative for acute disease), image reviewed Disposition Clinical Impression: Cystitis, Urinary tract infection, Hemorrhagic cystitis Disposition: HOME SELF-CARE Condition: Good Instructions (If sedation given, give patient instructions): Urinary Tract In fection in Women (ED), Hematuria (ED) Is patient prescribed a controlled substance at d/c from ED?: No Referrals: None,Stated [Primary Care Provider] - 1-2 days
[2021-07-20 03:02] LABS: Basophils % (A) 0 %; Eosinophils # (A) 0.3 k/uL (0-0.7); Eosinophils % (A) 2 %; HCT 42.7 % (34.0-46.0); HGB 14.1 gm/dL (11.4-16.0); Lymphocytes # (A) 2.8 k/uL (1.0-4.8); Lymphocytes % (A) 19 %; MCH 29.2 pg (25.0-35.0); MCHC 33.1 g/dL (31.0-37.0); MCV 88.1 fL (80.0-100.0); Mean Platelet Volume 7.7; Monocytes # (A) 0.6 k/uL (0-1.0); Monocytes % (A) 4 %; Neutrophils # (A) 10.7 k/uL (1.3-7.7); Neutrophils % (A) 74 %; Platelet Count 305 k/uL (150-450); RBC 4.85 m/uL (3.80-5.40); RDW 12.6 % (11.5-15.5); WBC 14.5 k/uL (3.8-10.6)
[2021-07-20 03:11] LABS: African American GFR (CKD) >90 (>60 ml/min/1.73 sqM); Albumin 4.3 g/dL (3.5-5.0); Anion Gap 10 mmol/L; Blood Urea Nitrogen 14 mg/dL (7-17); Calcium 9.7 mg/dL (8.4-10.2); Carbon Dioxide 24 mmol/L (22-30); Chloride 104 mmol/L (98-107); Glucose 103 mg/dL (74-99); Non-African American GFR(CKD) >90 (>60 ml/min/1.73 sqM); Potassium 3.7 mmol/L (3.5-5.1); Sodium 138 mmol/L (137-145); Total Bilirubin 0.5 mg/dL (0.2-1.3); Total Protein 7.7 g/dL (6.3-8.2)
[2021-07-20 03:12] LABS: ALT 24 U/L (4-34); AST 22 U/L (14-36); Alkaline Phosphatase 100 U/L (38-126); Amylase 41 U/L (30-110); Lipase 44 U/L (23-300)
[2021-07-20 03:13] LABS: Amorphous Sediment,Urine Occasional /hpf; Appearance,Urine Cloudy (Clear); Bacteria,Urine Few /hpf; Bilirubin,Urine Negative (Negative); Blood,Urine Moderate (Negative); Color,Urine Yellow; Glucose,Urine (UA) Negative (Negative); Ketones,Urine Negative (Negative); Leukocyte Esterase,Urine Large (Negative); Mucus,Urine Moderate /hpf; Nitrite,Urine Negative (Negative); PH, Urine 6.5 (5.0-8.0); Protein,Urine 1+ (Negative); RBC,Urine 119 /hpf (0-5); Specific Gravity,Urine 1.016 (1.001-1.035); Squamous Epithelial Cell,Urine 5 /hpf (0-4); Urobilinogen,Urine <2.0 mg/dL (<2.0); WBC,Urine 111 /hpf (0-5)
--- NOTE | 2021-07-20 03:39 | CT ---
EXAMINATION TYPE: CT abdomen pelvis wo con DATE OF EXAM: 07/20/2021 COMPARISON: None HISTORY: bilateral flank pain CT DLP: 1124.4 mGycm Automated exposure control for dose reduction was used. Images obtained from the diaphragm to the floor the pelvis with no contrast. Lung bases are clear. There is no pleural effusion. Heart size is normal. There is no pericardial eff usion. Liver spleen stomach pancreas gallbladder appear normal. The bile ducts are not dilated. There is no adrenal mass. Kidneys show normal size and contour. There is no hydronephrosis. The urete rs are not dilated. There is no retroperitoneal adenopathy. Bladder distends smoothly. There is no in guinal hernia. There is no free fluid in the pelvis. There are a few sigmoid diverticula. There is no diverticulitis. Appendix appears normal. There is no mesenteric edema. There is no ascites or free air. There is no evidence of a bowel obstru ction. Lumbar vertebra have normal spacing and alignment. Posterior elements are intact. There is no lara reynaldo fracture. Bony pelvis is intact. Hip joints are intact. Uterus is anteverted. There is no eviden ce of a pelvic mass. IMPRESSION: No evidence of renal stone or obstruction. There are a few sigmoid diverticula. No diverticulitis. No rmal appendix.
[2021-07-20 04:04] VITALS: BP 122/64; PULSE 91; RESP 22
[2021-07-20] MEDS ORDERED: NITROFURANTOIN MONOHYD/M-CRYST 100 MG CAP PO STA (04:38)
[2021-07-20 04:59] VITALS: TEMP 98.2
== END 2021-07-20 04:58 | disposition home or self-care (01) ==
LOC: EC 02:11
DX: N30.91 Cystitis, unspecified with hematuria (principal); J45.909 Unspecified asthma, uncomplicated; K21.9 Gastro-esophageal reflux disease without esophagitis; F32.9 Major depressive disorder, single episode, unspecified; Z88.0 Allergy status to penicillin; Z91.040 Latex allergy status
CPT/HCPCS: 99284; 96365; 96375; 96361; 36415; 80053; 82150; 83690; 85025; 81001; 81025; 87086; 74176; J0696; J1885

== ENCOUNTER 2021-08-11 22:39 | Emergency (ER) | payer OTHER ==
[2021-08-11 23:05] VITALS: BP 117/79; PULSE 85; RESP 20; TEMP 98.3
[2021-08-12 00:34] LABS: Appearance,Urine Clear (Clear); Bilirubin,Urine Negative (Negative); Blood,Urine Small (Negative); Color,Urine Dark Brown; Glucose,Urine (UA) Negative (Negative); Ketones,Urine Negative (Negative); Leukocyte Esterase,Urine Negative (Negative); Mucus,Urine Few /hpf; Nitrite,Urine Positive (Negative); PH, Urine 5.5 (5.0-8.0); Protein,Urine Trace (Negative); RBC,Urine 1 /hpf (0-5); Specific Gravity,Urine 1.033 (1.001-1.035); Squamous Epithelial Cell,Urine 2 /hpf (0-4); WBC,Urine 14 /hpf (0-5)
[2021-08-12] MEDS ORDERED: CEPHALEXIN 500 MG CAP PO STA (01:32)
--- NOTE | 2021-08-12 01:34 | ED ---
Abdominal Pain HPI - General Chief Complaint: Abdominal Pain Stated Complaint: Abdominal pain Time Seen by Provider: 08/12/21 01:23 Source: patient, RN notes reviewed Mode of arrival: wheelchair Limitations: no limitations - History of Present Illness Initial Comments: 25-year-old female presented emergency from chief complaint of abdominal pain. Patient states that she started having upper abdominal pain,'s patient and she'll get sick. Patient states started after eating a large amount of food. She states currently she is asymptomatic symptoms have resolved. No flank pain. Patient does have mildly urinary symptoms including dysuria. Patient states she was treated with IV antibiotic and one dose of oral Imitrex a week or so ago. She states never resolved. Patient denies any complaints. - Related Data Previous Rx's Medication Instructions Recorded Azithromycin [Zithromax Z-pack (6 0 mg PO DIRECTED #6 tab 12/13/17 tabs)] Ondansetron Odt [Zofran ODT] 4 mg PO Q8HR PRN #20 tab 12/13/17 Ibuprofen [Motrin] 600 mg PO Q8HR PRN #30 tab 10/22/18 EPINEPHrine (Auto Inject) [Epipen] 0.3 mg IM ONCE PRN #2 pen 11/12/19 Famotidine [Pepcid] 20 mg PO BID 4 Days #8 tablet 11/12/19 predniSONE 50 mg PO DAILY 4 Days #4 tab 11/12/19 Famotidine [Pepcid] 20 mg PO BID #10 tablet 03/13/20 predniSONE 50 mg PO DAILY #4 tablet 03/13/20 Cephalexin [Keflex] 500 mg PO Q8HR #21 cap 08/12/21 Allergies Allergy/AdvReac Type Severity Reaction Status Date / Time Penicillins Allergy Itching Verified 08/11/21 23:05 latex Allergy Rash/Hives Uncoded 08/11/21 23:05 Review of Systems ROS Statement: Those systems with pertinent positive or pertinent negative responses have been documented in the HPI. ROS Other: All systems not noted in ROS Statement are negative. Past Medical History Past Medical History: Asthma, GERD/Reflux History of Any Multi-Drug Resistant Organisms: None Reported Past Surgical History: No Surgical Hx Reported Past Psychological History: Depression Smoking Status: Never smoker Past Alcohol Use History: Occasional Past Drug Use History: None Reported General Exam Limitations: no limitations General appearance: alert, in no apparent distress Head exam: Present: atraumatic, normocephalic, normal inspection Neck exam: Present: normal inspection. Absent: tenderness, meningismus, lymphadenopathy Respiratory exam: Present: normal lung sounds bilaterally. Absent: respiratory distress, wheezes, rales, rhonchi, stridor Cardiovascular Exam: Present: regular rate, normal rhythm, normal heart sounds. Absent: systolic murmur, diastolic murmur, rubs, gallop, clicks GI/Abdominal exam: Present: soft, normal bowel sounds. Absent: distended, tenderness, guarding, rebound, rigid Back exam: Absent: CVA tenderness (R), CVA tenderness (L) Course Vital Signs 08/11/21 22:57 Temperature 98.3 F Pulse Rate 85 Respiratory 20 Rate Blood Pressure 117/79 O2 Sat by Pulse 96 Oximetry Medical Decision Making - Medical Decision Making Patient is currently symptomatically fever urinary tract infection return parameters were discussed. - Lab Data Lab Results 08/12/21 08/12/21 Range/Units 00:09 00:09 Urine Color Dark Brown Urine Appearance Clear (Clear) Urine pH 5.5 (5.0-8.0) Ur Specific [place] 1.033 (1.001-1.035) Urine Protein Trace H (Negative) Urine Glucose (UA) Negative (Negative) Urine Ketones Negative (Negative) Urine Blood Small H (Negative) Urine Nitrite Positive H (Negative) Urine Bilirubin Negative (Negative) Urine Urobilinogen 2.0 (<2.0) mg/dL Ur Leukocyte Esterase Negative (Negative) Urine RBC 1 (0-5) /hpf Urine WBC 14 H (0-5) /hpf Ur Squamous Epith Cells 2 (0-4) /hpf Urine Mucus Few H (None) /hpf Urine HCG, Qual Not Detected (Not Detectd) Disposition Clinical Impression: Urinary tract infection Disposition: HOME SELF-CARE Condition: Stable Instructions (If sedation given, give patient instructions): Urinary Tract Infection in Women (ED) Additional Instructions: Please return to the Emergency Department if symptoms worsen or any other concerns. Prescriptions: Cephalexin [Keflex] 500 mg PO Q8HR #21 cap Is patient prescribed a controlled substance at d/c from ED?: No Referrals: None,Stated [Primary Care Provider] - 1-2 days Time of Disposition: 01:33
== END 2021-08-12 01:42 | disposition home or self-care (01) ==
LOC: EC 22:39
DX: N39.0 Urinary tract infection, site not specified (principal); J45.909 Unspecified asthma, uncomplicated; K21.9 Gastro-esophageal reflux disease without esophagitis; Z88.0 Allergy status to penicillin; Z79.52 Long term (current) use of systemic steroids; Z79.1 Long term (current) use of non-steroidal anti-inflammatories (NSAID); Z79.899 Other long term (current) drug therapy
CPT/HCPCS: 81001; 81025; 87086; 99284

== ENCOUNTER 2021-10-10 01:31 | Emergency (ER) | payer OTHER ==
--- NOTE | 2021-10-10 02:18 | ED ---
General Adult HPI - General Stated complaint: Fever Time Seen by Provider: 10/10/21 02:00 Source: patient, RN notes reviewed Mode of arrival: ambulatory Limitations: no limitations - History of Present Illness Initial comments: 26-year-old female presents emergency from chief complaint of a fever. Patient states that symptoms started last 24 hours she went to fever or chills body aches mild congestion headache. Patient states her boyfriend is also sick. Patient denies any chest pain no abdominal pain, nausea vomiting. - Related Data Previous Rx's Medication Instructions Recorded Azithromycin [Zithromax Z-pack (6 0 mg PO DIRECTED #6 tab 12/13/17 tabs)] Ondansetron Odt [Zofran ODT] 4 mg PO Q8HR PRN #20 tab 12/13/17 Ibuprofen [Motrin] 600 mg PO Q8HR PRN #30 tab 10/22/18 EPINEPHrine (Auto Inject) [Epipen] 0.3 mg IM ONCE PRN #2 pen 11/12/19 Famotidine [Pepcid] 20 mg PO BID 4 Days #8 tablet 11/12/19 predniSONE 50 mg PO DAILY 4 Days #4 tab 11/12/19 Famotidine [Pepcid] 20 mg PO BID #10 tablet 03/13/20 predniSONE 50 mg PO DAILY #4 tablet 03/13/20 Cephalexin [Keflex] 500 mg PO Q8HR #21 cap 08/12/21 Allergies Allergy/AdvReac Type Severity Reaction Status Date / Time Penicillins Allergy Itching Verified 08/11/21 23:05 latex Allergy Rash/Hives Uncoded 08/11/21 23:05 Review of Systems ROS Statement: Those systems with pertinent positive or pertinent negative responses have been documented in the HPI. ROS Other: All systems not noted in ROS Statement are negative. Past Medical History Past Medical History: Asthma, GERD/Reflux History of Any Multi-Drug Resistant Organisms: None Reported Past Surgical History: No Surgical Hx Reported Past Psychological History: Depression Smoking Status: Never smoker Past Alcohol Use History: Occasional Past Drug Use History: None Reported General Exam Limitations: no limitations General appearance: alert, in no apparent distress Head exam: Present: atraumatic, normocephalic, normal inspection Eye exam: Present: normal appearance, PERRL, EOMI. Absent: scleral icterus, conjunctival injection, periorbital swelling ENT exam: Present: normal exam, normal oropharynx, mucous membranes moist Neck exam: Present: normal inspection, full ROM. Absent: tenderness, meningismus, lymphadenopathy Respiratory exam: Present: normal lung sounds bilaterally. Absent: respiratory distress, wheezes, rales, rhonchi, stridor Cardiovascular Exam: Present: regular rate, normal rhythm, normal heart sounds. Absent: systolic murmur, diastolic murmur, rubs, gallop, clicks Course Vital Signs 10/10/21 02:14 Temperature 101.2 F H Pulse Rate 114 H Respiratory 18 Rate Blood Pressure 119/65 Medical Decision Making - Medical Decision Making 26-year-old female presented for fever. Patient is COVID-19 positive. worsening monoclonal antibodies will be discharged in stable condition parameters discussed. - Lab Data Lab Results 10/10/21 Range/Units 02:21 Coronavirus (PCR) Detected A (Not Detectd) Disposition Clinical Impression: COVID-19 Disposition: HOME SELF-CARE Condition: Stable Instructions (If sedation given, give patient instructions): Coronavirus Dise ase 2019 (COVID-19) Additional Instructions: Please return to the Emergency Department if symptoms worsen or any other concerns. Is patient prescribed a controlled substance at d/c from ED?: No Referrals: None,Stated [Primary Care Provider] - 1-2 days Time of Disposition: 02:55
[2021-10-10] MEDS ORDERED: BAMLANIVIMAB (EUA) 700 MG, ETESEVIMAB (EUA) 1,400 MG in SODIUM CHLORIDE 0.9% 100 ML IVPB ONE (03:00)
[2021-10-10] MEDS ORDERED: SODIUM CHLORIDE 0.9% 50 ML IVPB ONE (03:00)
[2021-10-10 04:54] VITALS: BP 117/84; PULSE 91; RESP 16; TEMP 98.2
== END 2021-10-10 04:59 | disposition home or self-care (01) ==
LOC: EC 01:31
DX: U07.1 COVID-19 (principal); J45.909 Unspecified asthma, uncomplicated; F32.A Depression, unspecified; Z72.89 Other problems related to lifestyle
CPT/HCPCS: 87635; 99284; J3490

== ENCOUNTER 2021-12-07 18:49 | Emergency (ER) | payer OTHER ==
[2021-12-07] MEDS ORDERED: ONDANSETRON 4 MG/2 ML VIAL IVP STA (19:54)
[2021-12-07] MEDS ORDERED: SODIUM CHLORIDE 0.9% 1,000 ML IV STA (19:54)
[2021-12-07] MEDS ORDERED: ACETAMINOPHEN TAB 500 MG TAB PO STA (19:58)
--- NOTE | 2021-12-07 19:59 | ED ---
General Adult HPI - General Chief complaint: Nausea/Vomiting/Diarrhea Stated complaint: N/V/D Fever Time Seen by Provider: 12/07/21 19:50 Source: patient, RN notes reviewed, old records reviewed Mode of arrival: ambulatory Limitations: no limitations - History of Present Illness Initial comments: 26-year-old female presents with nausea vomiting diarrhea that started at 4:30 this morning. Patient states that her boyfriend also has similar symptoms and thought it may be food poisoning. She has body aches and chills but no documented fever. She denies any abdominal pain. -: hour(s) (16) Severity scale (1-10): 0 Associated Symptoms: nausea/vomiting, other (diarrhea) - Related Data Previous Rx's Medication Instructions Recorded Azithromycin [Zithromax Z-pack (6 0 mg PO DIRECTED #6 tab 12/13/17 tabs)] Ondansetron Odt [Zofran ODT] 4 mg PO Q8HR PRN #20 tab 12/13/17 Ibuprofen [Motrin] 600 mg PO Q8HR PRN #30 tab 10/22/18 EPINEPHrine (Auto Inject) [Epipen] 0.3 mg IM ONCE PRN #2 pen 11/12/19 Famotidine [Pepcid] 20 mg PO BID 4 Days #8 tablet 11/12/19 predniSONE 50 mg PO DAILY 4 Days #4 tab 11/12/19 Famotidine [Pepcid] 20 mg PO BID #10 tablet 03/13/20 predniSONE 50 mg PO DAILY #4 tablet 03/13/20 Cephalexin [Keflex] 500 mg PO Q8HR #21 cap 08/12/21 Allergies Allergy/AdvReac Type Severity Reaction Status Date / Time Penicillins Allergy Itching Verified 12/07/21 18:58 latex Allergy Rash/Hives Uncoded 12/07/21 18:58 Review of Systems ROS Statement: Those systems with pertinent positive or pertinent negative responses have been documented in the HPI. ROS Other: All systems not noted in ROS Statement are negative. Past Medical History Past Medical History: Asthma, GERD/Reflux History of Any Multi-Drug Resistant Organisms: None Reported Past Surgical History: No Surgical Hx Reported Past Psychological History: Depression Smoking Status: Never smoker Past Alcohol Use History: Occasional Past Drug Use History: None Reported General Exam Limitations: no limitations General appearance: alert, in no apparent distress ENT exam: Present: normal exam, normal oropharynx, mucous membranes moist Neck exam: Present: full ROM. Absent: tenderness, meningismus, lymphadenopathy Respiratory exam: Present: normal lung sounds bilaterally. Absent: respiratory distress, chest wall tenderness, accessory muscle use Cardiovascular Exam: Present: tachycardia GI/Abdominal exam: Present: soft, normal bowel sounds. Absent: distended, tenderness Extremities exam: Present: normal inspection, normal capillary refill. Absent: pedal edema Neurological exam: Present: alert, oriented X3 Psychiatric exam: Present: normal affect, normal mood Skin exam: Present: warm, dry, intact. Absent: cyanosis, diaphoretic Course Vital Signs 12/07/21 12/07/21 18:58 21:57 Temperature 101.8 F H 98.9 F Pulse Rate 126 H 109 H Respiratory 20 16 Rate Blood Pressure 108/68 112/67 O2 Sat by Pulse 96 97 Oximetry Medical Decision Making - Medical Decision Making Patient presents with nausea vomiting and diarrhea since 4:30 this morning. Her boyfriend also has similar symptoms. He states that his son was sick 2 days ago with similar symptoms and now well. Labs show no evidence of leukocytosis. Influenza A, B, and coronavirus swabs are negative. Electrolytes are unremarkable. Patient was given Tylenol and Motrin with Zofran and IV fluids. She sates she is feeling better and ready to be discharged home. Vital signs are stable, temperature is down. This is likely a viral illness as patient's significant other has similar symptoms. She has had no further vomiting in the emergency room. I did direct her to continue with a clear liquid diet for the next 12 hours and a bland diet tomorrow. Return to the emergency room with any new or concerning symptoms including right lower quadrant abdominal pain. - Lab Data Result diagrams: 12/07/21 20:14 12/07/21 20:14 Lab Results 12/07/21 12/07/21 12/07/21 Range/Units 20:14 20:14 20:14 WBC 7.6 (3.8-10.6) k/uL RBC 4.16 (3.80-5.40) m/uL Hgb 12.7 (11.4-16.0) gm/dL Hct 37.3 (34.0-46.0) % MCV 89.7 (80.0-100.0) fL MCH 30.6 (25.0-35.0) pg MCHC 34.1 (31.0-37.0) g/dL RDW 12.4 (11.5-15.5) % Plt Count 243 (150-450) k/uL MPV 8.1 Neutrophils % 84 % Lymphocytes % 10 % Monocytes % 4 % Eosinophils % 1 % Basophils % 0 % Neutrophils # 6.4 (1.3-7.7) k/uL Lymphocytes # 0.8 L (1.0-4.8) k/uL Monocytes # 0.3 (0-1.0) k/uL Eosinophils # 0.1 (0-0.7) k/uL Basophils # 0.0 (0-0.2) k/uL Sodium 136 L (137-145) mmol/L Potassium 3.4 L (3.5-5.1) mmol/L Chloride 103 (98-107) mmol/L Carbon Dioxide 24 (22-30) mmol/L Anion Gap 9 mmol/L BUN 11 (7-17) mg/dL Creatinine 0.61 (0.52-1.04) mg/dL Est GFR (CKD-EPI)AfAm >90 (>60 ml/min/1.73 sqM) Est GFR (CKD-EPI)NonAf >90 (>60 ml/min/1.73 sqM) Glucose 102 H (74-99) mg/dL Calcium 8.1 L (8.4-10.2) mg/dL Total Bilirubin 0.7 (0.2-1.3) mg/dL AST 25 (14-36) U/L ALT 25 (4-34) U/L Alkaline Phosphatase 87 (38-126) U/L Total Protein 6.6 (6.3-8.2) g/dL Albumin 3.6 (3.5-5.0) g/dL Influenza Type A (PCR) Not Detected (Not Detectd) Influenza Type B (PCR) Not Detected (Not Detectd) RSV (PCR) Not Detected (Not Detectd) SARS-CoV-2 (PCR) Not Detected (Not Detectd) Disposition Clinical Impression: Nausea & vomiting, Diarrhea Disposition: HOME SELF-CARE Condition: Good Instructions (If sedation given, give patient instructions): Acute Nausea and Vomiting (ED), Acute Diarrhea (ED) Additional Instructions: Increase your fluid intake. Use Zofran every 8 hours for nausea. Return to the emergency room with any new or concerning symptoms including right lower quadrant pain with fever or inability to keep any fluids down. Follow-up with the primary care doctor next week. Is patient prescribed a controlled substance at d/c from ED?: No Referrals: None,Stated [Primary Care Provider] - 1-2 days Time of Disposition: 21:29
[2021-12-07 20:32] LABS: Basophils % (A) 0 %; Eosinophils # (A) 0.1 k/uL (0-0.7); Eosinophils % (A) 1 %; HCT 37.3 % (34.0-46.0); HGB 12.7 gm/dL (11.4-16.0); Lymphocytes # (A) 0.8 k/uL (1.0-4.8); Lymphocytes % (A) 10 %; MCH 30.6 pg (25.0-35.0); MCHC 34.1 g/dL (31.0-37.0); MCV 89.7 fL (80.0-100.0); Mean Platelet Volume 8.1; Monocytes # (A) 0.3 k/uL (0-1.0); Monocytes % (A) 4 %; Neutrophils # (A) 6.4 k/uL (1.3-7.7); Neutrophils % (A) 84 %; Platelet Count 243 k/uL (150-450); RBC 4.16 m/uL (3.80-5.40); RDW 12.4 % (11.5-15.5); WBC 7.6 k/uL (3.8-10.6)
[2021-12-07 20:48] LABS: ALT 25 U/L (4-34); AST 25 U/L (14-36); African American GFR (CKD) >90 (>60 ml/min/1.73 sqM); Albumin 3.6 g/dL (3.5-5.0); Alkaline Phosphatase 87 U/L (38-126); Anion Gap 9 mmol/L; Blood Urea Nitrogen 11 mg/dL (7-17); Calcium 8.1 mg/dL (8.4-10.2); Carbon Dioxide 24 mmol/L (22-30); Chloride 103 mmol/L (98-107); Glucose 102 mg/dL (74-99); Non-African American GFR(CKD) >90 (>60 ml/min/1.73 sqM); Potassium 3.4 mmol/L (3.5-5.1); Sodium 136 mmol/L (137-145); Total Bilirubin 0.7 mg/dL (0.2-1.3); Total Protein 6.6 g/dL (6.3-8.2)
[2021-12-07 21:11] LABS: Influenza A Not Detected (Not Detectd); Influenza B Not Detected (Not Detectd)
[2021-12-07] MEDS ORDERED: IBUPROFEN 800 MG TAB PO STA (21:56)
[2021-12-07 21:58] VITALS: BP 112/67; PULSE 109; RESP 16; TEMP 98.9
[2021-12-07] MEDS ORDERED: ONDANSETRON 4 MG ODT STARTER PACK 2 TAB BTL PO STA (22:38)
== END 2021-12-07 22:46 | disposition home or self-care (01) ==
LOC: EC 18:49
DX: R11.2 Nausea with vomiting, unspecified (principal); R19.7 Diarrhea, unspecified; Z20.822 Contact with and (suspected) exposure to COVID-19; J45.909 Unspecified asthma, uncomplicated; K21.9 Gastro-esophageal reflux disease without esophagitis; F32.A Depression, unspecified; Z79.899 Other long term (current) drug therapy; Z88.0 Allergy status to penicillin
CPT/HCPCS: 99284; 96374; 96361; 36415; 80053; 85025; 87636; J2405; S0119

== ENCOUNTER 2024-01-07 18:32 | Emergency (ER) | payer OTHER ==
[2024-01-07] MEDS: KETOROLAC 15 MG/ML 1 ML VIAL IVP STA (19:06)
[2024-01-07] MEDS: HYDROmorphone 1 MG/ML 1 ML SYRINGE IVP STA (19:07)
--- NOTE | 2024-01-07 19:14 | XR ---
EXAMINATION TYPE: XR shoulder complete LT DATE OF EXAM: 01/07/2024 COMPARISON: None HISTORY: Fall, pain TECHNIQUE: 2 view left shoulder FINDINGS: There is anterior-inferior dislocation of the humeral head in relation to the glenoid. No a cute fractures are identified. Acromioclavicular junction appears normal. IMPRESSION: 1. Dislocation left shoulder
[2024-01-07] MEDS: ONDANSETRON 4 MG/2 ML VIAL IVP STA (19:23)
--- NOTE | 2024-01-07 19:40 | XR ---
EXAMINATION TYPE: XR shoulder limited LT DATE OF EXAM: 01/07/2024 COMPARISON: NONE HISTORY: Pain TECHNIQUE: Shoulder examined in single AP projection. FINDINGS: The humeral head articulates with the glenoid. Prior dislocation appears reduced. The acromio-clavicular junction is normal. No acute fractures or dislocations are evident. A follow up study can be performed 7-10 days from acute trauma for continued pain. MRI can be perfor med if soft tissue evaluation would be of benefit. IMPRESSION: 1. Reduction of prior dislocation. No acute fractures evident.
--- NOTE | 2024-01-07 19:42 | ED ---
General Adult HPI - General Chief complaint: Extremity Injury, Upper Stated complaint: left shoulder injury Time Seen by Provider: 01/07/24 18:35 Source: patient, RN notes reviewed, old records reviewed Mode of arrival: ambulatory Limitations: no limitations - History of Present Illness Initial comments: -year-old female presents status post fall with left shoulder injury. Patient states she was on roller skates, fell falling directly onto the left shoulder with a significant pop. Denies head or neck trauma. Denies any other extremity injury. - Related Data Previous Rx's Medication Instructions Recorded Azithromycin [Zithromax Z-pack (6 0 mg PO DIRECTED #6 tab 12/13/17 tabs)] Ondansetron Odt [Zofran ODT] 4 mg PO Q8HR PRN #20 tab 12/13/17 Ibuprofen [Motrin] 600 mg PO Q8HR PRN #30 tab 10/22/18 EPINEPHrine (Auto Inject) [Epipen] 0.3 mg IM ONCE PRN #2 pen 11/12/19 Famotidine [Pepcid] 20 mg PO BID 4 Days #8 tablet 11/12/19 predniSONE 50 mg PO DAILY 4 Days #4 tab 11/12/19 Famotidine [Pepcid] 20 mg PO BID #10 tablet 03/13/20 predniSONE 50 mg PO DAILY #4 tablet 03/13/20 Cephalexin [Keflex] 500 mg PO Q8HR #21 cap 08/12/21 Allergies Allergy/AdvReac Type Severity Reaction Status Date / Time Penicillins Allergy Itching Verified 01/07/24 18:37 latex Allergy Rash/Hives Uncoded 01/07/24 18:37 Review of Systems ROS Statement: Those systems with pertinent positive or pertinent negative responses have been documented in the HPI. ROS Other: All systems not noted in ROS Statement are negative. Past Medical History Past Medical History: Asthma, GERD/Reflux History of Any Multi-Drug Resistant Organisms: None Reported Past Surgical History: No Surgical Hx Reported Past Psychological History: Depression Smoking Status: Never smoker Past Alcohol Use History: Occasional Past Drug Use History: None Reported General Exam Limitations: no limitations General appearance: alert, in no apparent distress Head exam: Present: atraumatic, normocephalic Eye exam: Present: normal appearance, PERRL ENT exam: Present: normal exam Neck exam: Present: normal inspection. Absent: tenderness, meningismus Respiratory exam: Present: normal lung sounds bilaterally. Absent: respiratory distress, wheezes Cardiovascular Exam: Present: regular rate, normal rhythm GI/Abdominal exam: Present: soft. Absent: distended Extremities exam: Absent: full ROM (Left upper extremity, minimal range of motion of the left shoulder secondary to pain, distal pulses intact, normal cement mason apprentice strength) Back exam: Present: normal inspection Neurological exam: Present: alert, oriented X3 Psychiatric exam: Present: normal affect, normal mood Course Vital Signs 01/07/24 18:35 Temperature 98.4 F Pulse Rate 104 H Respiratory 24 Rate Blood Pressure 121/90 O2 Sat by Pulse 99 Oximetry Procedures - Orthopedic Joint Reduction Joint #1 Consent Obtained: verbal consent Side: left Joint Reduction Location: shoulder Analgesia: other (Toradol and Dilaudid) Shoulder Technique Used (if applicable): traction/counter-traction, external rotation Post-Reduction Neuro Exam: intact Post-Reduction Vascular Exam: intact Post Reduction X-Ray Obtained: Yes Post Reduction X-Ray Results: reduced Splint Applied: Yes (Sling) Patient Tolerated Procedure: well Medical Decision Making - Medical Decision Making Was pt. sent in by a medical professional or institution (, PA, NURSING HOME ADMINISTRATOR, urgent care, hospital, or [facility]...) When possible be specific @ -No Did you speak to anyone other than the patient for history (EMS, parent, family, police, friend...)? What history was obtained from this source @ -No Did you review nursing and triage notes (agree or disagree)? Why? @ -I reviewed and agree with nursing and triage notes Were old charts reviewed (outside hosp., previous admission, EMS record, old EKG, old radiological studies, urgent care reports/EKG's, [facility] records)? Report findings @ -No old charts were reviewed Differential Diagnosis (chest pain, altered mental status, abdominal pain women, abdominal pain men, vaginal bleeding, weakness, fever, dyspnea, syncope, headache, dizziness, GI bleed, back pain, seizure, CVA, palpatations, mental health, musculoskeletal)? @Differential Musculoskeletal Muscular strain, contusion, ligament sprain, fracture, arthritis, septic arthritis, bursitis, cellulitis, muscle spasm, nerve compression, DVT, arterial occlusion, herpes zoster, electrolyte abnormality, tumor.... This is not meant to be in all inclusive list EKG interpreted by me (3pts min.). @ -As above X-rays interpreted by me (1pt min.). @Initial x-ray of the left shoulder showing anterior-inferior dislocation, postreduction film showing reduced dislocation CT interpreted by me (1pt min.). @ -None done U/S interpreted by me (1pt. min.). @ -None done What testing was considered but not performed or refused? (CT, X-rays, U/S, labs)? Why? @ -None What meds were considered but not given or refused? Why? @ -None Did you discuss the management of the patient with other professionals (pr ofessionals i.e. , PA, NURSING HOME ADMINISTRATOR, lab, RT, psych nurse, director of social work, risk control specialist, teacher, information assurance officer, window caser)? Give summary @ -No Was smoking cessation discussed for >3mins.? @ -No Was critical care preformed (if so, how long)? @ -No Were there social determinants of health that impacted care today? How? (Homelessness, low income, unemployed, alcoholism, drug addiction, transportation, low edu. Level, literacy, decrease access to med. care, [facility], rehab)? @ -No Was there de-escalation of care discussed even if they declined (Discuss DNR or withdrawal of care, Hospice)? DNR status @ -No What co-morbidities impacted this encounter? (DM, HTN, Smoking, COPD, CAD, Cancer, CVA, ARF, Chemo, Hep., AIDS, mental health diagnosis, sleep apnea, morbid obesity)? @ -None Was patient admitted / discharged? Hospital course, mention meds given and route, prescriptions, significant lab abnormalities, going to OR and other pertinent info. @ -28-year-old female with fall onto the left shoulder, initial x-rays show inferior anterior dislocation. Was able to reduce this shoulder with IV Toradol and Dilaudid. Patient tolerated procedure well. She is placed in a sling, given orthopedic follow-up. Undiagnosed new problem with uncertain prognosis? @ -No Drug Therapy requiring intensive monitoring for toxicity (Heparin, Nitro, Insulin, Cardizem)? @ -No Were any procedures done? @ -Yes, shoulder reduction Diagnosis/symptom? @Left shoulder dislocation Acute, or Chronic, or Acute on Chronic? @Acute Uncomplicated (without systemic symptoms) or Complicated (systemic symptoms)? @ -Default Side effects of treatment? @ -No Exacerbation, Progression, or Severe Exacerbation? @ -No Poses a threat to life or bodily function? How? (Chest pain, [place], [place], pneumonia, PE, COPD, DKA, ARF, appy, cholecystitis, CVA, Diverticulitis, Homicidal, Suicidal, threat to staff... and all critical care pts) @ -No Disposition Clinical Impression: Dislocation of left shoulder joint Disposition: HOME SELF-CARE Condition: Good Instructions (If sedation given, give patient instructions): Shoulder Dislocation (ED) Is patient prescribed a controlled substance at d/c from ED?: No Referrals: None,Stated [Primary Care Provider] - 1-2 days Vasile Diallo DO [Doctor of Osteopathic Medicine] - 1-2 days Time of Disposition: 19:42
[2024-01-07 19:53] VITALS: BP 136/99; PULSE 72; RESP 18; TEMP 98.5
== END 2024-01-07 19:52 | disposition home or self-care (01) ==
LOC: EC 18:32
DX: S43.015A Anterior dislocation of left humerus, initial encounter (principal); S43.035A Inferior dislocation of left humerus, initial encounter; Z88.0 Allergy status to penicillin; Z91.040 Latex allergy status; V00.131A Fall from skateboard, initial encounter; Y92.331 Roller skating rink as the place of occurrence of the external cause; Y93.51 Activity, roller skating (inline) and skateboarding
CPT/HCPCS: 23650 ×2; 96374 ×2; 99283 ×2; 96375; 73030; 73020; J2405; J1170; J1885

== ENCOUNTER 2024-02-09 03:16 | Emergency (ER) | payer OTHER ==
--- NOTE | 2024-02-09 03:37 | ED ---
Abdominal Pain HPI - General Chief Complaint: Abdominal Pain Stated Complaint: Abd pain Time Seen by Provider: 02/09/24 03:34 Source: patient Mode of arrival: ambulatory Limitations: no limitations - History of Present Illness Initial Comments: This patient is a 28-year-old woman who presents for evaluation of lower abdominal/suprapubic pain that has been going on for a little over a day now. The patient states that it seems to be all across lower abdomen. The pain is constant. She has not noted worsening or relieving factors. She states she did not have a bowel movement last night or this morning which is a little unusual. She is not having fever or chills. No nausea or vomiting. No change in urination noted. Patient declines analgesic at initial history and physical MD Complaint: abdominal pain Onset/Timin -: days(s) Location: LLQ, RLQ, suprapubic Radiation: none Migration to: no migration Severity: moderate Quality: cramping, aching Consistency: constant Improves With: nothing Worsens With: nothing Associated Symptoms: nausea, dysuria - Related Data Patient : No Previous Rx's Medication Instructions Recorded Azithromycin [Zithromax Z-pack (6 0 mg PO DIRECTED #6 tab 12/13/17 tabs)] Ondansetron Odt [Zofran ODT] 4 mg PO Q8HR PRN #20 tab 12/13/17 Ibuprofen [Motrin] 600 mg PO Q8HR PRN #30 tab 10/22/18 EPINEPHrine (Auto Inject) [Epipen] 0.3 mg IM ONCE PRN #2 pen 11/12/19 Famotidine [Pepcid] 20 mg PO BID 4 Days #8 tablet 11/12/19 predniSONE 50 mg PO DAILY 4 Days #4 tab 11/12/19 Famotidine [Pepcid] 20 mg PO BID #10 tablet 03/13/20 predniSONE 50 mg PO DAILY #4 tablet 03/13/20 Cephalexin [Keflex] 500 mg PO Q8HR #21 cap 08/12/21 Amoxic-Pot Clav 875-125Mg 1 tab PO BID 1 Days #14 tab 02/09/24 [Augmentin 875-125] Allergies Allergy/AdvReac Type Severity Reaction Status Date / Time latex Allergy Rash/Hives Uncoded 02/09/24 03:23 Review of Systems ROS Statement: Those systems with pertinent positive or pertinent negative responses have been documented in the HPI. ROS Other: All systems not noted in ROS Statement are negative. Constitutional: Denies: fever, chills, weakness Respiratory: Denies: cough, dyspnea Cardiovascular: Denies: chest pain, palpitations Gastrointestinal: Reports: abdominal pain, nausea, constipation. Denies: vomiting, diarrhea, melena, hematochezia Genitourinary: Reports: dysuria, frequency. Denies: hematuria, discharge, abnormal menses Musculoskeletal: Denies: back pain Skin: Denies: rash Neurological: Denies: headache, weakness, numbness Past Medical History Past Medical History: Asthma, GERD/Reflux History of Any Multi-Drug Resistant Organisms: None Reported Past Surgical History: No Surgical Hx Reported Past Psychological History: Depression Smoking Status: Never smoker Past Alcohol Use History: Occasional Past Drug Use History: None Reported General Exam Limitations: no limitations General appearance: alert, in no apparent distress Head exam: Present: atraumatic, normocephalic Eye exam: Present: normal appearance. Absent: scleral icterus, conjunctival injection Neck exam: Present: normal inspection Respiratory exam: Present: normal lung sounds bilaterally. Absent: respiratory distress, wheezes, rales, rhonchi, stridor, accessory muscle use Cardiovascular Exam: Present: regular rate, normal rhythm, normal heart sounds. Absent: systolic murmur, diastolic murmur, rubs, gallop GI/Abdominal exam: Present: soft. Absent: distended, tenderness, guarding, rebound, rigid, mass Extremities exam: Present: normal inspection, normal capillary refill. Absent: pedal edema, calf tenderness Back exam: Present: normal inspection. Absent: CVA tenderness (R), CVA tenderness (L) Skin exam: Present: warm, dry, intact, normal color. Absent: rash Course Vital Signs 02/09/24 02/09/24 02/09/24 03:21 05:02 06:46 Temperature 98.1 F 97.9 F 97.9 F Pulse Rate 104 H 93 95 Respiratory 20 16 16 Rate Blood Pressure 158/96 137/83 133/81 O2 Sat by Pulse 96 98 97 Oximetry 02/09/24 08:18 Temperature 98.5 F Pulse Rate 77 Respiratory 18 Rate Blood Pressure 125/80 O2 Sat by Pulse Oximetry Medical Decision Making - Medical Decision Making The patient had CT scan of the abdomen and pelvis which I interpreted as showing acute diverticulitis of the colon Was pt. sent in by a medical professional or institution (AYDEN Watkins, LEAN SPECIALIST, urgent care, hospital, or long-term...) When possible be specific @ -[No] Did you speak to anyone other than the patient for history (EMS, parent, family, police, friend...)? What history was obtained from this source @ -[No] Did you review nursing and triage notes (agree or disagree)? Why? @ -[I reviewed and agree with nursing and triage notes] Were old charts reviewed (outside hosp., previous admission, EMS record, old EKG, old radiological studies, urgent care reports/EKG's, long-term records)? Report findings @ -[No old charts were reviewed] Differential Diagnosis (chest pain, altered mental status, abdominal pain women, abdominal pain men, vaginal bleeding, weakness, fever, dyspnea, syncope, head ache, dizziness, GI bleed, back pain, seizure, CVA, palpatations, mental health, musculoskeletal)? @ -[Differential Abdominal Pain Women: Appendicitis, Cholecystitis, diverticulosis, ischemic bowel, pancreatitis, hepatitis, UTI, gastroenteritis, AAA, incarcerated hernia, bowel obstruction, constipation, inflammatory bowel, hepatitis, peptic ulcer disease, splenic infarction, perforated viscus, vulvitis, ovarian torsion, PID, kidney stone, placenta abruption, this is not meant to be an all-inclusive list EKG interpreted by me (3pts min.). @ -[As above] X-rays interpreted by me (1pt min.). @ -[None done] CT interpreted by me (1pt min.). @ -[I interpreted as above U/S interpreted by me (1pt. min.). @ -[None done] What testing was considered but not performed or refused? (CT, X-rays, U/S, labs)? Why? @ -[None] What meds were considered but not given or refused? Why? @ -[None] Did you discuss the management of the patient with other professionals (professionals i.e. AYDEN Watkins, LEAN SPECIALIST, lab, RT, psych nurse, social work lecturer, beauty operator apprentice, teacher, flight communications officer, case folder)? Give summary @ -[No] Was smoking cessation discussed for >3mins.? @ -[No] Was critical care preformed (if so, how long)? @ -[No] Were there social determinants of health that impacted care today? How? (Homelessness, low income, unemployed, alcoholism, drug addiction, transportation, low edu. Level, literacy, decrease access to med. care, senior care, rehab)? @ -[No] Was there de-escalation of care discussed even if they declined (Discuss DNR or withdrawal of care, Hospice)? DNR status @ -[No] What co-morbidities impacted this encounter? (DM, HTN, Smoking, COPD, CAD, Cancer, CVA, ARF, Chemo, Hep., AIDS, mental health diagnosis, sleep apnea, morbid obesity)? @ -[None] Was patient admitted / discharged? Hospital course, mention meds given and route, prescriptions, significant lab abnormalities, going to OR and other pertinent info. @ -[Patient is a 28-year-old woman here to have evaluation for abdominal pain. She does have tenderness on exam and therefore has CT scan which I interpreted as showing acute diverticulitis. The patient is started on antibiotics and at this point stable for outpatient course. Discussed appropriate further care and follow-up as well as return parameters. Undiagnosed new problem with uncertain prognosis? @ -[No] Drug Therapy requiring intensive monitoring for toxicity (Heparin, Nitro, Insulin, Cardizem)? @ -[No] Were any procedures done? @ -[No] Diagnosis/symptom? @ -[Acute diverticulitis Acute, or Chronic, or Acute on Chronic? @ -[Acute Uncomplicated (without systemic symptoms) or Complicated (systemic symptoms)? @ -[Uncomplicated Side effects of treatment? @ -[No] Exacerbation, Progression, or Severe Exacerbation? @ -[No] Poses a threat to life or bodily function? How? (Chest pain, USA, [place], pneumonia, PE, COPD, DKA, ARF, appy, cholecystitis, CVA, Diverticulitis, Homicidal, Suicidal, threat to staff... and all critical care pts) @ -Low risk - Lab Data Result diagrams: 02/09/24 03:54 02/09/24 03:54 Lab Results 02/09/24 02/09/24 02/09/24 Range/Units 03:54 03:54 03:54 WBC 18.1 H (3.8-10.6) k/uL RBC 4.90 (3.80-5.40) m/uL Hgb 13.7 (11.4-16.0) gm/dL Hct 42.7 (34.0-46.0) % MCV 87.1 (80.0-100.0) fL MCH 28.0 (25.0-35.0) pg MCHC 32.1 (31.0-37.0) g/dL RDW 12.7 (11.5-15.5) % Plt Count 287 (150-450) k/uL MPV 8.7 Neutrophils % 78 % Lymphocytes % 15 % Monocytes % 5 % Eosinophils % 1 % Basophils % 0 % Neutrophils # 14.1 H (1.3-7.7) k/uL Lymphocytes # 2.7 (1.0-4.8) k/uL Monocytes # 0.9 (0-1.0) k/uL Eosinophils # 0.2 (0-0.7) k/uL Basophils # 0.1 (0-0.2) k/uL Sodium (137-145) mmol/L Potassium (3.5-5.1) mmol/L Chloride (98-107) mmol/L Carbon Dioxide (22-30) mmol/L Anion Gap mmol/L BUN (7-17) mg/dL Creatinine (0.52-1.04) mg/dL Est GFR (CKD-EPI)AfAm (>60 ml/min/1.73 sqM) Est GFR (CKD-EPI)NonAf (>60 ml/min/1.73 sqM) Glucose (74-99) mg/dL Calcium (8.4-10.2) mg/dL Total Bilirubin (0.2-1.3) mg/dL AST (14-36) U/L ALT (4-34) U/L Alkaline Phosphatase (38-126) U/L Total Protein (6.3-8.2) g/dL Albumin (3.5-5.0) g/dL Amylase (30-110) U/L Lipase (23-300) U/L Urine Color Yellow Urine Appearance Cloudy H (Clear) Urine pH 6.5 (5.0-8.0) Ur Specific [place] 1.027 (1.001-1.035) Urine Protein Trace H (Negative) Urine Glucose (UA) Negative (Negative) Urine Ketones Negative (Negative) Urine Blood Negative (Negative) Urine Nitrite Negative (Negative) Urine Bilirubin Negative (Negative) Urine Urobilinogen <2.0 (<2.0) mg/dL Ur Leukocyte Esterase Large H (Negative) Urine RBC 4 (0-5) /hpf Urine WBC 8 H (0-5) /hpf Ur Squamous Epith Cells 29 H (0-4) /hpf Urine Bacteria Rare H (None) /hpf Urine Mucus Few H (None) /hpf Urine HCG, Qual Not Detected (Not Detectd) 02/09/24 Range/Units 03:54 WBC (3.8-10.6) k/uL RBC (3.80-5.40) m/uL Hgb (11.4-16.0) gm/dL Hct (34.0-46.0) % MCV (80.0-100.0) fL MCH (25.0-35.0) pg MCHC (31.0-37.0) g/dL RDW (11.5-15.5) % Plt Count (150-450) k/uL MPV Neutrophils % % Lymphocytes % % Monocytes % % Eosinophils % % Basophils % % Neutrophils # (1.3-7.7) k/uL Lymphocytes # (1.0-4.8) k/uL Monocytes # (0-1.0) k/uL Eosinophils # (0-0.7) k/uL Basophils # (0-0.2) k/uL Sodium 136 L (137-145) mmol/L Potassium 4.4 (3.5-5.1) mmol/L Chloride 104 (98-107) mmol/L Carbon Dioxide 27 (22-30) mmol/L Anion Gap 5 mmol/L BUN 9 (7-17) mg/dL Creatinine 0.51 L (0.52-1.04) mg/dL Est GFR (CKD-EPI)AfAm >90 (>60 ml/min/1.73 sqM) Est GFR (CKD-EPI)NonAf >90 (>60 ml/min/1.73 sqM) Glucose 105 H (74-99) mg/dL Calcium 9.0 (8.4-10.2) mg/dL Total Bilirubin 0.9 (0.2-1.3) mg/dL AST 25 (14-36) U/L ALT 21 (4-34) U/L Alkaline Phosphatase 91 (38-126) U/L Total Protein 7.0 (6.3-8.2) g/dL Albumin 3.7 (3.5-5.0) g/dL Amylase 44 (30-110) U/L Lipase 36 (23-300) U/L Urine Color Urine Appearance (Clear) Urine pH (5.0-8.0) Ur Specific [place] (1.001-1.035) Urine Protein (Negative) Urine Glucose (UA) (Negative) Urine Ketones (Negative) Urine Blood (Negative) Urine Nitrite (Negative) Urine Bilirubin (Negative) Urine Urobilinogen (<2.0) mg/dL Ur Leukocyte Esterase (Negative) Urine RBC (0-5) /hpf Urine WBC (0-5) /hpf Ur Squamous Epith Cells (0-4) /hpf Urine Bacteria (None) /hpf Urine Mucus (None) /hpf Urine HCG, Qual (Not Detectd) Disposition Clinical Impression: Diverticulitis Disposition: HOME SELF-CARE Condition: Good Instructions (If sedation given, give patient instructions): Diverticulitis (ED) Prescriptions: Amoxic-Pot Clav 875-125Mg [Augmentin 875-125] 1 tab PO BID 1 Days #14 tab Is patient prescribed a controlled substance at d/c from ED?: No Referrals: None,Stated [Primary Care Provider] - 1-2 days
[2024-02-09] MEDS: SODIUM CHLORIDE 0.9% 1,000 ML IV STA (03:55)
[2024-02-09 04:14] LABS: ALT 21 U/L (4-34); AST 25 U/L (14-36); African American GFR (CKD) >90 (>60 ml/min/1.73 sqM); Albumin 3.7 g/dL (3.5-5.0); Alkaline Phosphatase 91 U/L (38-126); Amylase 44 U/L (30-110); Anion Gap 5 mmol/L; Blood Urea Nitrogen 9 mg/dL (7-17); Carbon Dioxide 27 mmol/L (22-30); Chloride 104 mmol/L (98-107); Glucose 105 mg/dL (74-99); Lipase 36 U/L (23-300); Non-African American GFR(CKD) >90 (>60 ml/min/1.73 sqM); Potassium 4.4 mmol/L (3.5-5.1); Sodium 136 mmol/L (137-145); Total Bilirubin 0.9 mg/dL (0.2-1.3)
[2024-02-09 04:24] LABS: Basophils # (A) 0.1 k/uL (0-0.2); Basophils % (A) 0 %; Eosinophils # (A) 0.2 k/uL (0-0.7); Eosinophils % (A) 1 %; HCT 42.7 % (34.0-46.0); HGB 13.7 gm/dL (11.4-16.0); Lymphocytes # (A) 2.7 k/uL (1.0-4.8); Lymphocytes % (A) 15 %; MCHC 32.1 g/dL (31.0-37.0); MCV 87.1 fL (80.0-100.0); Mean Platelet Volume 8.7; Monocytes # (A) 0.9 k/uL (0-1.0); Monocytes % (A) 5 %; Neutrophils # (A) 14.1 k/uL (1.3-7.7); Neutrophils % (A) 78 %; Platelet Count 287 k/uL (150-450); RDW 12.7 % (11.5-15.5); WBC 18.1 k/uL (3.8-10.6)
[2024-02-09 04:38] LABS: Appearance,Urine Cloudy (Clear); Bacteria,Urine Rare /hpf; Bilirubin,Urine Negative (Negative); Blood,Urine Negative (Negative); Color,Urine Yellow; Glucose,Urine (UA) Negative (Negative); Ketones,Urine Negative (Negative); Leukocyte Esterase,Urine Large (Negative); Mucus,Urine Few /hpf; Nitrite,Urine Negative (Negative); PH, Urine 6.5 (5.0-8.0); Protein,Urine Trace (Negative); RBC,Urine 4 /hpf (0-5); Specific Gravity,Urine 1.027 (1.001-1.035); Squamous Epithelial Cell,Urine 29 /hpf (0-4); Urobilinogen,Urine <2.0 mg/dL (<2.0); WBC,Urine 8 /hpf (0-5)
[2024-02-09] MEDS: KETOROLAC 15 MG/ML 1 ML VIAL IVP STA (04:48)
--- NOTE | 2024-02-09 07:54 | CT ---
EXAMINATION TYPE: CT abdomen pelvis wo con DATE OF EXAM: 02/09/2024 COMPARISON: 07/20/2021 INDICATION: lower abdominal pain DLP: 1334.4 mGycm, Automated exposure control for dose reduction was used. CONTRAST: 0 mL of Isovue 300. Study performed without Oral Contrast TECHNIQUE: Axial images were obtained from above the diaphragm to the pubic rami in the axial plane a t 5 mm thick sections. Reconstructed images are reviewed on the computer in the coronal plane. FINDINGS: Limited CT sections are obtained the lung bases. The lung bases are clear. CT ABDOMEN: Liver: Normal Spleen: Normal Pancreas: Normal Adrenal glands: The adrenal glands are normal. Gallbladder: Normal Kidneys: No masses are evident. No hydronephrosis is present. No cysts are present. Aorta: Vascular calcification is within the aorta. Inferior vena cava: Normal. CT PELVIS: Inflammatory changes are adjacent to the proximal sigmoid colon. Diverticular changes are within the proximal to mid sigmoid colon. Findings could be compatible with acute diverticulitis. No abscess for mation or free air is evident. There are loops of bowel which are incompletely distended or lack oral contrast limiting their evaluation. Appendix: Normal as visualized. Urinary bladder: Normal. Genitourinary structures: Uterus is normal. Right ovary is 3.7 cm cyst. Left adnexa is unremarkable. Osseous structures: No suspicious lytic or sclerotic lesions. IMPRESSION: 1. Acute moderate diverticulitis proximal sigmoid colon. No free air or abscess formation identified at this time. 2. 3.7 cm right ovarian cyst
[2024-02-09] MEDS: AMOXIC-POT CLAV 875-125MG 1 EACH TAB PO STA (08:14)
[2024-02-09 08:38] VITALS: BP 125/80; PULSE 77; RESP 18; TEMP 98.5
[2024-02-09] MEDS: ONDANSETRON 4 MG/2 ML VIAL IVP STA (08:41)
[2024-02-09] MEDS: HYDROmorphone 0.5 MG/0.5 ML SYRINGE IVP STA (08:41)
== END 2024-02-09 08:49 | disposition home or self-care (01) ==
LOC: EC 03:16
DX: K57.32 Diverticulitis of large intestine without perforation or abscess without bleeding (principal); Z91.040 Latex allergy status
CPT/HCPCS: 36415; 80053; 82150; 83690; 85025; 81001; 81025; 74176; 99284; 96374; 96375 ×2; 96361; J2405; J1885; J1170

== ENCOUNTER 2024-12-10 19:19 | Emergency (ER) | payer OTHER ==
--- NOTE | 2024-12-10 20:03 | ED ---
General Adult HPI - General Stated complaint: Migraine,Back pain Time Seen by Provider: 12/10/24 20:02 Source: patient Mode of arrival: ambulatory Limitations: no limitations - History of Present Illness Initial comments: 29-year-old female presenting with flulike symptoms. Patient reports headache, cough, congestion, back pain, fatigue, body aches. Symptoms started this after noon. No chest pain or difficulty breathing. No nausea vomiting diarrhea or abdominal pain. No vision or hearing changes. Patient reports that she uses cocaine and recently came off of a "butts" and thinks that this may be related to her symptoms. - Related Data Previous Rx's Medication Instructions Recorded Azithromycin [Zithromax Z-pack (6 0 mg PO DIRECTED #6 tab 12/13/17 tabs)] Ondansetron Odt [Zofran ODT] 4 mg PO Q8HR PRN #20 tab 12/13/17 Ibuprofen [Motrin] 600 mg PO Q8HR PRN #30 tab 10/22/18 EPINEPHrine (Auto Inject) [Epipen] 0.3 mg IM ONCE PRN #2 pen 11/12/19 Famotidine [Pepcid] 20 mg PO BID 4 Days #8 tablet 11/12/19 predniSONE 50 mg PO DAILY 4 Days #4 tab 11/12/19 Famotidine [Pepcid] 20 mg PO BID #10 tablet 03/13/20 predniSONE 50 mg PO DAILY #4 tablet 03/13/20 Cephalexin [Keflex] 500 mg PO Q8HR #21 cap 08/12/21 Amoxic-Pot Clav 875-125Mg 1 tab PO BID 1 Days #14 tab 02/09/24 [Augmentin 875-125] Oseltamivir [Tamiflu] 75 mg PO Q12HR 5 Days #9 cap 12/10/24 Allergies Allergy/AdvReac Type Severity Reaction Status Date / Time latex Allergy Rash/Hives Uncoded 12/10/24 20:05 Review of Systems ROS Statement: Those systems with pertinent positive or pertinent negative responses have been documented in the HPI. ROS Other: All systems not noted in ROS Statement are negative. Past Medical History Past Medical History: Asthma, GERD/Reflux History of Any Multi-Drug Resistant Organisms: None Reported Past Surgical History: No Surgical Hx Reported Past Psychological History: Depression Smoking Status: Never smoker Past Alcohol Use History: Occasional Past Drug Use History: None Reported General Exam - General Exam Comments Initial Comments: Visual Physical Exam Vital signs reviewed General: Well-appearing, nontoxic, no acute distress. Head: Normocephalic, atraumatic Eyes: PERRLA, EOMI ENT: Airway patent Chest: Nonlabored breathing Skin: No visual rash, normal skin tone Neuro: Alert and oriented 3 Musculoskeletal: No gross abnormalities General appearance: alert, in no apparent distress Head exam: Present: atraumatic, normocephalic, normal inspection Eye exam: Present: normal appearance, EOMI. Absent: periorbital swelling Neck exam: Present: normal inspection. Absent: meningismus Respiratory exam: Present: normal lung sounds bilaterally. Absent: respiratory distress, wheezes, rales, rhonchi, stridor Cardiovascular Exam: Present: normal rhythm, tachycardia, normal heart sounds. Absent: systolic murmur, diastolic murmur, rubs, gallop, clicks Neurological exam: Present: alert, oriented X3 Psychiatric exam: Present: normal affect, normal mood Skin exam: Present: warm, dry, normal color Course Vital Signs 12/10/24 12/10/24 20:02 22:18 Temperature 100.3 F H Pulse Rate 121 H 113 H Respiratory 18 20 Rate Blood Pressure 138/92 126/80 O2 Sat by Pulse 96 95 Oximetry Medical Decision Making - Medical Decision Making I performed the quick note portion of this visit, electronically signed Becky Miller PA-C Was pt. sent in by a medical professional or institution (AYDEN Watkins, SCULPTURE CONSERVATOR, urgent care, hospital, or detention...) When possible be specific @ -No Did you speak to anyone other than the patient for history (EMS, parent, family, police, friend...)? What history was obtained from this source @ -No Did you review nursing and triage notes (agree or disagree)? Why? @ -I reviewed and agree with nursing and triage notes Were old charts reviewed (outside hosp., previous admission, EMS record, old EKG, old radiological studies, urgent care reports/EKG's, detention records)? Report findings @ -No old charts were reviewed Differential Diagnosis (chest pain, altered mental status, abdominal pain women, abdominal pain men, vaginal bleeding, weakness, fever, dyspnea, syncope, headache, dizziness, GI bleed, back pain, seizure, CVA, palpatations, mental health, musculoskeletal)? @ -Differential includes influenza, RSV, COVID, pneumonia, bronchitis, UTI, , not an all-inclusive list EKG interpreted by me (3pts min.). @ -As above X-rays interpreted by me (1pt min.). @ -Chest x-ray shows no acute process CT interpreted by me (1pt min.). @ -None done U/S interpreted by me (1pt. min.). @ -None done What testing was considered but not performed or refused? (CT, X-rays, U/S, labs)? Why? @ -None What meds were considered but not given or refused? Why? @ -None Did you discuss the management of the patient with other professionals (professionals i.e. , PA, SCULPTURE CONSERVATOR, lab, RT, psych nurse, social services, administrative supervisor, teacher, community relations officer, corrections caseworker)? Give summary @ -No Was smoking cessation discussed for >3mins.? @ -No Was critical care preformed (if so, how long)? @ -No Were there social determinants of health that impacted care today? How? (Homelessness, low income, unemployed, alcoholism, drug addiction, transportation, low edu. Level, literacy, decrease access to med. care, long term, rehab)? @ -No Was there de-escalation of care discussed even if they declined (Discuss DNR or withdrawal of care, Hospice)? DNR status @ -No What co-morbidities impacted this encounter? (DM, HTN, Smoking, COPD, CAD, Cancer, CVA, ARF, Chemo, Hep., AIDS, mental health diagnosis, sleep apnea, morbid obesity)? @ -None Was patient admitted / discharged? Hospital course, mention meds given and route, prescriptions, significant lab abnormalities, going to OR and other pertinent info. @ -29-year-old female presenting with flulike symptoms. Started today. History and physical examination are conducted. Patient is febrile, she is given Motrin and Tylenol. Urine shows no infectious process, contamination with 9 squamous cells. Negative hCG. She is positive for influenza A. Chest x-ray shows no acute process. On reassessment patient is resting comfortably showing no acute signs of distress. She is educated on today's findings and supportive management at home. She would like to begin Tamiflu, first dose given here. Follow-up with PCP. Report back to ER with any new or worsening symptoms. Discussed return parameters and answered all questions. Patient conveyed verbal understanding and agreed to the plan. I discussed this case in detail with my attending Dr. Zimmerman Undiagnosed new problem with uncertain prognosis? @ -No Drug Therapy requiring intensive monitoring for toxicity (Heparin, Nitro, Insulin, Cardizem)? @ -No Were any procedures done? @ -No Diagnosis/symptom? @ -Influenza Acute, or Chronic, or Acute on Chronic? @ -Acute Uncomplicated (without systemic symptoms) or Complicated (systemic symptoms)? @ -Uncomplicated Side effects of treatment? @ -No Exacerbation, Progression, or Severe Exacerbation? @ -No Poses a threat to life or bodily function? How? (Chest pain, [place], [place], pneumonia, PE, COPD, DKA, ARF, appy, cholecystitis, CVA, Diverticulitis, Homicidal, Suicidal, threat to staff... and all critical care pts) @ -Low likelihood - Lab Data Lab Results 12/10/24 12/10/24 12/10/24 Range/Units 20:05 20:13 20:13 Urine Color Yellow Urine Appearance Cloudy H (Clear) Urine pH 6.0 (5.0-8.0) Ur Specific [place] 1.027 (1.001-1.035) Urine Protein Trace H (Negative) Urine Glucose (UA) Negative (Negative) Urine Ketones 3+ H (Negative) Urine Blood Negative (Negative) Urine Nitrite Negative (Negative) Urine Bilirubin Negative (Negative) Urine Urobilinogen <2.0 (<2.0) mg/dL Ur Leukocyte Esterase Small H (Negative) Urine RBC 1 (0-5) /hpf Urine WBC 3 (0-5) /hpf Ur Squamous Epith Cells 9 H (0-4) /hpf Urine Mucus Many H (None) /hpf Urine HCG, Qual Not Detected (Not Detectd) Influenza Type A (PCR) Detected A (Not Detectd) Influenza Type B (PCR) Not Detected (Not Detectd) RSV (PCR) Not Detected (Not Detectd) SARS-CoV-2 (PCR) Not Detected (Not Detectd) Disposition Clinical Impression: Influenza Disposition: HOME SELF-CARE Condition: Good Instructions (If sedation given, give patient instructions): Influenza (ED) Additional Instructions: Follow-up with PCP. Report back to ER with any new or worsening symptoms. Alternate Motrin and Tylenol as needed for fever control. Rest and stay well- hydrated. Prescriptions: Oseltamivir [Tamiflu] 75 mg PO Q12HR 5 Days #9 cap Is patient prescribed a controlled substance at d/c from ED?: No Referrals: None,Stated [Primary Care Provider] - 1-2 days Forms: Area PCPs Time of Disposition: 22:04
[2024-12-10 20:05] VITALS: TEMP 100.3
[2024-12-10] MEDS: ACETAMINOPHEN TAB 500 MG TAB PO STA (20:54)
[2024-12-10] MEDS: IBUPROFEN 600 MG TAB PO STA (20:55)
[2024-12-10 21:10] LABS: Appearance,Urine Cloudy (Clear); Bilirubin,Urine Negative (Negative); Blood,Urine Negative (Negative); Color,Urine Yellow; Glucose,Urine (UA) Negative (Negative); Ketones,Urine 3+ (Negative); Leukocyte Esterase,Urine Small (Negative); Mucus,Urine Many /hpf; Nitrite,Urine Negative (Negative); Protein,Urine Trace (Negative); RBC,Urine 1 /hpf (0-5); Specific Gravity,Urine 1.027 (1.001-1.035); Squamous Epithelial Cell,Urine 9 /hpf (0-4); Urobilinogen,Urine <2.0 mg/dL (<2.0); WBC,Urine 3 /hpf (0-5)
[2024-12-10 21:13] LABS: Influenza A Detected (Not Detectd); Influenza B Not Detected (Not Detectd); RSV Not Detected (Not Detectd)
--- NOTE | 2024-12-10 21:56 | XR ---
EXAMINATION TYPE: XR chest 2V DATE OF EXAM: 12/10/2024 9:37 PM COMPARISON: Chest radiographs from 11/15/2015 CLINICAL INDICATION: Female, 29 years old with history of cough; TECHNIQUE: XR chest 2V Frontal and lateral views of the chest. FINDINGS: Lungs/Pleura: There is no evidence of pleural effusion, focal consolidation, or pneumothorax. Pulmonary vascularity: Unremarkable. Heart/mediastinum: Cardiomediastinal silhouette is unremarkable. Musculoskeletal: No acute osseous pathology. IMPRESSION: No acute cardiopulmonary disease/process. [facility], , 12/10/2024 9:54 PM
[2024-12-10] MEDS: OSELTAMIVIR 75 MG CAP PO STA (22:15)
[2024-12-10 22:23] VITALS: BP 126/80; PULSE 113; RESP 20
== END 2024-12-10 22:18 | disposition home or self-care (01) ==
LOC: EC 19:19
DX: J10.1 Influenza due to other identified influenza virus with other respiratory manifestations (principal); Z91.040 Latex allergy status
CPT/HCPCS: 71046; 81001; 81025; 87636; 99283

== ENCOUNTER 2025-01-17 12:45 | Emergency (ER) | payer OTHER ==
[2025-01-17 12:54] VITALS: TEMP 97.7
--- NOTE | 2025-01-17 13:32 | ED ---
Abdominal Pain HPI - General Chief Complaint: Abdominal Pain Stated Complaint: abd pain Time Seen by Provider: 01/17/25 13:02 Source: patient, RN notes reviewed Mode of arrival: ambulatory Limitations: no limitations - History of Present Illness Initial Comments: This is a 29-year-old female with history of diverticulitis presenting for lower abdominal pain (07/19) since last night. Patient states pain is intermittent with associated nausea. Denies fever, chills, chest pain, dyspnea, vomiting, diarrhea, constipation, hematochezia, melena. Onset/Timin -: days(s) Location: LLQ, RLQ Radiation: none Migration to: no migration Severity scale (1-10): 10 Associated Symptoms: nausea - Related Data Previous Rx's Medication Instructions Recorded Azithromycin [Zithromax Z-pack (6 0 mg PO DIRECTED #6 tab 12/13/17 tabs)] Ondansetron Odt [Zofran ODT] 4 mg PO Q8HR PRN #20 tab 12/13/17 Ibuprofen [Motrin] 600 mg PO Q8HR PRN #30 tab 10/22/18 EPINEPHrine (Auto Inject) [Epipen] 0.3 mg IM ONCE PRN #2 pen 11/12/19 Famotidine [Pepcid] 20 mg PO BID 4 Days #8 tablet 11/12/19 predniSONE 50 mg PO DAILY 4 Days #4 tab 11/12/19 Famotidine [Pepcid] 20 mg PO BID #10 tablet 03/13/20 predniSONE 50 mg PO DAILY #4 tablet 03/13/20 Cephalexin [Keflex] 500 mg PO Q8HR #21 cap 08/12/21 Amoxic-Pot Clav 875-125Mg 1 tab PO BID 1 Days #14 tab 02/09/24 [Augmentin 875-125] Oseltamivir [Tamiflu] 75 mg PO Q12HR 5 Days #9 cap 12/10/24 Amoxic-Pot Clav 875-125Mg 1 tab PO Q12HR 1 Days #20 tab 01/17/25 [Augmentin 875-125] Allergies Allergy/AdvReac Type Severity Reaction Status Date / Time latex Allergy Rash/Hives Uncoded 01/17/25 12:54 Review of Systems ROS Statement: Those systems with pertinent positive or pertinent negative responses have been documented in the HPI. ROS Other: All systems not noted in ROS Statement are negative. Past Medical History Past Medical History: Asthma, GERD/Reflux Additional Past Medical History / Comment(s): Diverticulisis History of Any Multi-Drug Resistant Organisms: None Reported Past Surgical History: No Surgical Hx Reported Past Psychological History: Depression Smoking Status: Never smoker Past Alcohol Use History: Occasional Past Drug Use History: Marijuana General Exam Limitations: no limitations General appearance: alert, in no apparent distress Head exam: Present: atraumatic, normocephalic, normal inspection Eye exam: Present: normal appearance, PERRL, EOMI. Absent: scleral icterus, conjunctival injection, periorbital swelling ENT exam: Present: normal exam, mucous membranes moist Neck exam: Present: normal inspection. Absent: tenderness, meningismus, lymphadenopathy Respiratory exam: Present: normal lung sounds bilaterally. Absent: respiratory distress, wheezes, rales, rhonchi, stridor, accessory muscle use, decreased breath sounds, prolonged expiratory Cardiovascular Exam: Present: regular rate, normal rhythm, normal heart sounds. Absent: systolic murmur, diastolic murmur, rubs, gallop, clicks GI/Abdominal exam: Present: soft, tenderness (Positive periumbilical TTP without guarding), diminished bowel sounds, hypoactive bowel sounds. Absent: distended, guarding, rebound, rigid Extremities exam: Present: normal inspection, full ROM, normal capillary refill. Absent: tenderness, pedal edema, joint swelling, calf tenderness Back exam: Present: normal inspection Neurological exam: Present: alert, oriented X3, CN II-XII intact Psychiatric exam: Present: normal affect, normal mood Skin exam: Present: warm, dry, intact, normal color. Absent: rash Course Vital Signs 01/17/25 01/17/25 12:51 18:41 Temperature 97.7 F Pulse Rate 83 86 Respiratory 20 18 Rate Blood Pressure 158/98 151/89 O2 Sat by Pulse 99 97 Oximetry Medical Decision Making - Medical Decision Making Was pt. sent in by a medical professional or institution (, PA, ROTARY SWAGING MACHINE OPERATOR, urgent care, hospital, or [place] health care facility...) When possible be specific @ -No Did you speak to anyone other than the patient for history (EMS, parent, family, police, friend...)? What history was obtained from this source @ -No Did you review nursing and triage notes (agree or disagree)? Why? @ -I reviewed and agree with nursing and triage notes Were old charts reviewed (outside hosp., previous admission, EMS record, old EKG, old radiological studies, urgent care reports/EKG's, [place] health care facility records)? Report findings @ -No old charts were reviewed Differential Diagnosis (chest pain, altered mental status, abdominal pain women, abdominal pain men, vaginal bleeding, weakness, fever, dyspnea, syncope, headache, dizziness, GI bleed, back pain, seizure, CVA, palpatations, mental health, musculoskeletal)? @ -Differential Abdominal Pain Women: Appendicitis, Cholecystitis, diverticulosis, ischemic bowel, pancreatitis, hepatitis, UTI, gastroenteritis, AAA, incarcerated hernia, bowel obstruction, constipation, inflammatory bowel, hepatitis, peptic ulcer disease, splenic infarction, perforated viscus, vulvitis, ovarian torsion, PID, kidney stone, placenta abruption, this is not meant to be an all-inclusive list EKG interpreted by me (3pts min.). @ -Not done X-rays interpreted by me (1pt min.). @ -None done CT interpreted by me (1pt min.). @ -Abdomen/pelvic CT shows sigmoid diverticulitis with no evidence of organized fluid collection. U/S interpreted by me (1pt. min.). @ -None done What testing was considered but not performed or refused? (CT, X-rays, U/S, lab s)? Why? @ -None What meds were considered but not given or refused? Why? @ -None Did you discuss the management of the patient with other professionals (professionals i.e. , PA, ROTARY SWAGING MACHINE OPERATOR, lab, RT, psych nurse, executive secretary social welfare, printing plate setter, teacher, ship's electronic warfare officer, continuous pillowcase cutter)? Give summary @ -No Was smoking cessation discussed for >3mins.? @ -No Was critical care preformed (if so, how long)? @ -No Were there social determinants of health that impacted care today? How? (Homelessness, low income, unemployed, alcoholism, drug addiction, transportation, low edu. Level, literacy, decrease access to med. care, retirement, rehab)? @ -No Was there de-escalation of care discussed even if they declined (Discuss DNR or withdrawal of care, Hospice)? DNR status @ -No What co-morbidities impacted this encounter? (DM, HTN, Smoking, COPD, CAD, Cancer, CVA, ARF, Chemo, Hep., AIDS, mental health diagnosis, sleep apnea, morbid obesity)? @ -None Was patient admitted / discharged? Hospital course, mention meds given and route, prescriptions, significant lab abnormalities, going to OR and other pertinent info. @ -Lab work shows leukocytosis 17.82 with left shift, otherwise unremarkable. UA unremarkable with negative urine hCG. Abdomen/pelvic CT shows sigmoid diverticulitis with no evidence of organized fluid collection. Patient provided IV normal saline, Dilaudid and Zofran. Provided initial dose of p.o. Augmentin with remaining Augmentin regimen sent to patient's pharmacy. Advised brat diet and follow-up with PCP/GI for any ongoing or worsening symptoms. Discussed patient with Dr. Wan. Undiagnosed new problem with uncertain prognosis? @ -No Drug Therapy requiring intensive monitoring for toxicity (Heparin, Nitro, Insulin, Cardizem)? @ -No Were any procedures done? @ -No Diagnosis/symptom? @ -Sigmoid diverticulitis Acute, or Chronic, or Acute on Chronic? @ -Acute Uncomplicated (without systemic symptoms) or Complicated (systemic symptoms)? @ -Uncomplicated Side effects of treatment? @ -No Exacerbation, Progression, or Severe Exacerbation? @ -No Poses a threat to life or bodily function? How? (Chest pain, [place], [place], pneumonia, PE, COPD, DKA, ARF, appy, cholecystitis, CVA, Diverticulitis, Homicidal, Suicidal, threat to staff... and all critical care pts) @ -No - Lab Data Result diagrams: 01/17/25 16:08 01/17/25 16:08 Lab Results 01/17/25 01/17/25 01/17/25 Range/Units 16:08 16:08 16:08 WBC 17.82 H (4.50-10.00) 10*3/uL RBC 5.25 H (4.10-5.20) 10*6/uL Hgb 15.1 H (12.0-15.0) g/dL Hct 44.2 (37.2-46.3) % MCV 84.2 (80.0-97.0) fL MCH 28.8 (27.0-32.0) pg MCHC 34.2 (32.0-37.0) g/dL Plt Count 350 (140-440) 10*3/uL MPV 10.7 (9.5-12.2) fL Immature Gran % (Auto) 0.4 % Neutrophils % 81.2 % Lymphocytes % 11.1 % Monocytes % 6.3 % Eosinophils % 0.8 % Basophils % 0.2 % Immature Gran # 0.08 H (0.00-0.04) 10*3/uL Neutrophils # 14.46 H (1.80-7.70) 10*3/uL Lymphocytes # 1.97 (0.90-5.00) 10*3/uL Monocytes # 1.12 H (0.20-1.00) 10*3/uL Eosinophils # 0.15 (0.04-0.35) 10*3/uL Basophils # 0.04 (0.00-0.10) 10*3/uL Manual Slide Review Performed Large Platelets Present Stomatocytes Present Sodium 135 L (137-145) mmol/L Potassium 4.4 (3.5-5.1) mmol/L Chloride 101 (98-107) mmol/L Carbon Dioxide 24 (22-30) mmol/L Anion Gap 10 mmol/L BUN 10 (7-17) mg/dL Creatinine 0.56 (0.52-1.04) mg/dL Est GFR (CKD-EPI)AfAm >90 (>60 ml/min/1.73 sqM) Est GFR (CKD-EPI)NonAf >90 (>60 ml/min/1.73 sqM) Glucose 107 H (74-99) mg/dL Plasma Lactic Acid Tony 0.9 (0.7-2.0) mmol/L Calcium 9.7 (8.4-10.2) mg/dL Total Bilirubin 0.7 (0.2-1.3) mg/dL AST 26 (14-36) U/L ALT 25 (4-34) U/L Alkaline Phosphatase 108 (38-126) U/L Total Protein 8.0 (6.3-8.2) g/dL Albumin 4.4 (3.5-5.0) g/dL Lipase 39 (23-300) U/L Urine Color Urine Appearance (Clear) Urine pH (5.0-8.0) Ur Specific [place] (1.001-1.035) Urine Protein (Negative) Urine Glucose (UA) (Negative) Urine Ketones (Negative) Urine Blood (Negative) Urine Nitrite (Negative) Urine Bilirubin (Negative) Urine Urobilinogen (<2.0) mg/dL Ur Leukocyte Esterase (Negative) Urine RBC (0-5) /hpf Urine WBC (0-5) /hpf Ur Squamous Epith Cells (0-4) /hpf Urine Mucus (None) /hpf Urine HCG, Qual (Not Detectd) 01/17/25 01/17/25 Range/Units 16:13 16:13 WBC (4.50-10.00) 10*3/uL RBC (4.10-5.20) 10*6/uL Hgb (12.0-15.0) g/dL Hct (37.2-46.3) % MCV (80.0-97.0) fL MCH (27.0-32.0) pg MCHC (32.0-37.0) g/dL Plt Count (140-440) 10*3/uL MPV (9.5-12.2) fL Immature Gran % (Auto) % Neutrophils % % Lymphocytes % % Monocytes % % Eosinophils % % Basophils % % Immature Gran # (0.00-0.04) 10*3/uL Neutrophils # (1.80-7.70) 10*3/uL Lymphocytes # (0.90-5.00) 10*3/uL Monocytes # (0.20-1.00) 10*3/uL Eosinophils # (0.04-0.35) 10*3/uL Basophils # (0.00-0.10) 10*3/uL Manual Slide Review Large Platelets Stomatocytes Sodium (137-145) mmol/L Potassium (3.5-5.1) mmol/L Chloride (98-107) mmol/L Carbon Dioxide (22-30) mmol/L Anion Gap mmol/L BUN (7-17) mg/dL Creatinine (0.52-1.04) mg/dL Est GFR (CKD-EPI)AfAm (>60 ml/min/1.73 sqM) Est GFR (CKD-EPI)NonAf (>60 ml/min/1.73 sqM) Glucose (74-99) mg/dL Plasma Lactic Acid Tony (0.7-2.0) mmol/L Calcium (8.4-10.2) mg/dL Total Bilirubin (0.2-1.3) mg/dL AST (14-36) U/L ALT (4-34) U/L Alkaline Phosphatase (38-126) U/L Total Protein (6.3-8.2) g/dL Albumin (3.5-5.0) g/dL Lipase (23-300) U/L Urine Color Light Yellow Urine Appearance Clear (Clear) Urine pH 6.0 (5.0-8.0) Ur Specific [place] 1.025 (1.001-1.035) Urine Protein Negative (Negative) Urine Glucose (UA) Negative (Negative) Urine Ketones Negative (Negative) Urine Blood Trace H (Negative) Urine Nitrite Negative (Negative) Urine Bilirubin Negative (Negative) Urine Urobilinogen <2.0 (<2.0) mg/dL Ur Leukocyte Esterase Small H (Negative) Urine RBC 9 H (0-5) /hpf Urine WBC 7 H (0-5) /hpf Ur Squamous Epith Cells 4 (0-4) /hpf Urine Mucus Rare H (None) /hpf Urine HCG, Qual Not Detected (Not Detectd) Disposition Clinical Impression: Sigmoid diverticulitis Disposition: HOME SELF-CARE Condition: Good Instructions (If sedation given, give patient instructions): Diverticulitis (ED) Additional Instructions: Follow-up with PCP in the next 24-48 hours. Return to ER if experiencing worsening fever, abdominal pain, altered mental status. Prescriptions: Amoxic-Pot Clav 875-125Mg [Augmentin 875-125] 1 tab PO Q12HR 1 Days #20 tab Is patient prescribed a controlled substance at d/c from ED?: No Referrals: None,Stated [Primary Care Provider] - 1-2 days Noemy Martinez MD [STAFF PHYSICIAN] - 1-2 days Haley Grayson MD [STAFF PHYSICIAN] - 1-2 days Time of Disposition: 18:19
[2025-01-17 16:16] LABS: Basophils # (A) 0.04 10*3/uL (0.00-0.10); Basophils % (A) 0.2 %; Eosinophils # (A) 0.15 10*3/uL (0.04-0.35); Eosinophils % (A) 0.8 %; HCT 44.2 % (37.2-46.3); HGB 15.1 g/dL (12.0-15.0); Lymphocytes # (A) 1.97 10*3/uL (0.90-5.00); Lymphocytes % (A) 11.1 %; MCH 28.8 pg (27.0-32.0); MCHC 34.2 g/dL (32.0-37.0); MCV 84.2 fL (80.0-97.0); Mean Platelet Volume 10.7 fL (9.5-12.2); Monocytes # (A) 1.12 10*3/uL (0.20-1.00); Monocytes % (A) 6.3 %; Neutrophils # (A) 14.46 10*3/uL (1.80-7.70); Neutrophils % (A) 81.2 %; Platelet Count 350 10*3/uL (140-440); RBC 5.25 10*6/uL (4.10-5.20); RDW 12.9 % (11.5-14.5); WBC 17.82 10*3/uL (4.50-10.00)
[2025-01-17 16:34] LABS: Appearance,Urine Clear (Clear); Bilirubin,Urine Negative (Negative); Blood,Urine Trace (Negative); Color,Urine Light Yellow; Glucose,Urine (UA) Negative (Negative); Ketones,Urine Negative (Negative); Leukocyte Esterase,Urine Small (Negative); Mucus,Urine Rare /hpf; Nitrite,Urine Negative (Negative); Protein,Urine Negative (Negative); RBC,Urine 9 /hpf (0-5); Specific Gravity,Urine 1.025 (1.001-1.035); Squamous Epithelial Cell,Urine 4 /hpf (0-4); Urobilinogen,Urine <2.0 mg/dL (<2.0); WBC,Urine 7 /hpf (0-5)
[2025-01-17 16:37] LABS: ALT 25 U/L (4-34); African American GFR (CKD) >90 (>60 ml/min/1.73 sqM); Albumin 4.4 g/dL (3.5-5.0); Anion Gap 10 mmol/L; Blood Urea Nitrogen 10 mg/dL (7-17); Calcium 9.7 mg/dL (8.4-10.2); Carbon Dioxide 24 mmol/L (22-30); Chloride 101 mmol/L (98-107); Glucose 107 mg/dL (74-99); Lipase 39 U/L (23-300); Non-African American GFR(CKD) >90 (>60 ml/min/1.73 sqM); Sodium 135 mmol/L (137-145); Total Bilirubin 0.7 mg/dL (0.2-1.3)
[2025-01-17 16:42] LABS: AST 26 U/L (14-36); Alkaline Phosphatase 108 U/L (38-126); Potassium 4.4 mmol/L (3.5-5.1)
[2025-01-17 17:01] LABS: Large Platelets Present
[2025-01-17 17:02] LABS: Stomatocytes Present
--- NOTE | 2025-01-17 17:57 | CT ---
EXAMINATION TYPE: CT abdomen pelvis w con DATE OF EXAM: 01/17/2025 5:30 PM COMPARISON: 02/09/2024 CLINICAL INDICATION: Female, 29 years old with history of Lower abdominal pain; diverticulitis TECHNIQUE: Axial CT abdomen pelvis w con;Sagittal and coronal reformats were created on a separate w orkstation. Contrast used:100 mL of Isovue 300 with IV Contrast, (none if empty) Oral contrast used: without Oral Contrast (none if empty) CT DLP: 1796.4 mGycm, Automated exposure control for dose reduction was used. FINDINGS: LOWER CHEST: Unremarkable ABDOMEN LIVER: Diffusely hypoattenuating parenchyma. GALLBLADDER AND BILE DUCTS: Unremarkable. PANCREAS: Unremarkable. SPLEEN: Unremarkable. ADRENAL GLANDS: Unremarkable. KIDNEYS AND URETERS: No evidence of hydronephrosis or obstructing renal calculus. The ureters are unr emarkable. PELVIS BLADDER: No evidence for wall thickening or mass given limitations of exam. REPRODUCTIVE: Unremarkable. ABDOMEN & PELVIS STOMACH AND BOWEL: Circumferential wall thickening of the sigmoid colon with fat stranding changes pr esent. No evidence of bowel obstruction. The appendix is normal. PERITONEUM/RETROPERITONEUM: No evidence of pneumoperitoneum or free fluid. VASCULATURE: No evidence of aortic aneurysm. MUSCULOSKELETAL: No acute osseous abnormalities LYMPH NODES: No gross evidence for lymphadenopathy. SOFT TISSUE/ABDOMINAL WALL: Unremarkable IMPRESSION: Colitis/diverticulitis of the sigmoid colon. No organizing fluid collection or evidence for perforati on at this time. This is in a similar location to 02/09/2024. [facility], , 01/17/2025 5:55 PM
[2025-01-17] MEDS: AMOXIC-POT CLAV 875-125MG 1 EACH TAB PO STA (18:26)
[2025-01-17] MEDS: HYDROmorphone 0.5 MG/0.5 ML SYRINGE IVP STA (18:26)
[2025-01-17] MEDS: ONDANSETRON 4 MG/2 ML VIAL IVP STA (18:26)
[2025-01-17] MEDS: SODIUM CHLORIDE 0.9% 500 ML 500 ML IV STA (18:30)
[2025-01-17 18:41] VITALS: BP 151/89; PULSE 86; RESP 18
== END 2025-01-17 19:01 | disposition home or self-care (01) ==
LOC: EC 12:45
DX: K57.32 Diverticulitis of large intestine without perforation or abscess without bleeding (principal); Z91.040 Latex allergy status
CPT/HCPCS: 36415; 80053; 83605; 83690; 85025; 81001; 81025; 74177; 99284; 96374; 96375; J2405; J1171; Q9967